=== PATIENT | male | born 1975 | race Caucasian/White ===

== ENCOUNTER 2017-11-17 12:24 | Emergency (ER) | payer OTHER, SELFPAY ==
[2017-11-17 12:25] VITALS: BP 122/78; PULSE 85; RESP 26; TEMP 36.7; O2SAT 100; BMI 26.9
[2017-11-17] MEDS: LORazepam 2 MG/ML Syringe 1 MG IM (13:10)
[2017-11-17] MEDS: Ziprasidone IM 20 MG/ML VIAL IM (13:10)
--- NOTE | 2017-11-17 14:45 | ED.VISSUMM ---
- ER Visit Summary Date of Service: 11/17/17 Chief Complaint: Anxiety History of Present Illness: The patient is a 42 M with anxiety for the past 2-3 days, he is anxious about his divorce, apparently has a job interview in a few days and is very anxious about this. In fact he did not take his Risperdal over the past 2 days apparently also because of stress. He has a history of schizoaffective disorder and anxiety. Physical Examination: Patient appears anxious, his heart is regular lungs are clear abdomen soft and nontender and normal exam otherwise. He has no hallucinations, he is not delusional, he is not psychotic. He is not manic. ] Emergency Department Course and Treatment: Patient was treated with Geodon and Ativan he is now sleeping comfortably feels much better he is encouraged to take his home medications and he will. He is not suicidal and he will be discharged in stable condition. Impression: [Anxiety] This note was generated with [employer] dictation software. It may contain incorrect words, spelling, and punctuation that were not noted in review of the chart prior to signing ED Disposition - Plan for ED Patient: Disposition: Home or Assisted Living Chief Complaint: Anxiety Instructions: ED Stress React Referrals: Care Physician,No Primary [Primary Care Provider] - 2 Days
[2017-11-17 14:55] VITALS: BP 110/57; PULSE 70; RESP 12; O2SAT 99
== END 2017-11-17 14:57 | disposition home or self-care (01) ==
PROVIDERS: Emergency Provider Emergency Medicine
DX: F41.9 Anxiety disorder, unspecified (principal); F25.9 Schizoaffective disorder, unspecified; F12.90 Cannabis use, unspecified, uncomplicated; Z79.899 Other long term (current) drug therapy; Z72.0 Tobacco use
CPT/HCPCS: 96372; 99285; J3486

== ENCOUNTER 2017-12-05 17:23 | Emergency (ER) | payer OTHER, SELFPAY ==
[2017-12-05 17:24] VITALS: BP 98/60; PULSE 78; RESP 16; TEMP 36.3; O2SAT 97; BMI 26.2
--- NOTE | 2017-12-05 17:38 | ED.VISSUMM ---
- ER Visit Summary Date of Service: 12/05/17 Chief Complaint: Depression History of Present Illness: The patient is a 42 M reportedly called his daughter today to say goodarturoe. He would not answer the phone when she tried to call back so police were called. Please found him in his home. He said there were no weapons in the house. Patient does admit to drinking 6 or 7 beers today and eating edible marijuana gummy bears. He states he took his normal psych medications today. He will not admit to wanting to hurt himself at this time but does admit that he is depressed. He apparently recently had a marriage and and lost a close friend. Patient is followed at the counseling center denies any recent change to his psychiatric medications. Physical Examination: Vital signs include blood pressure 98/60, temperature 97.4, heart rate 78, respiratory rate 16, pulse ox 97% on room air. Patient is lying with his eyes closed. He will only open his eyes to command. He will answer questions appropriately. Head neck examination reveals no sign of trauma. Heart is regular rate and rhythm. Lung sounds are clear. Abdomen is soft nontender. Test Results: EKG is sinus at 74 with no sign of acute ischemia. CBC significant for hemoglobin 12.7. Chemistry studies unremarkable. Tox screen is positive for amphetamines, MDMA, cannabinoids. EtOH is 160. Emergency Department Course and Treatment: Patient was given liter of IV fluids here. He did request nicotine patch. After patient had been observed for several hours he was evaluated by Brittnee from the counseling center. After speaking with her, patient does admit that he does feel suicidal and this scares him because he has only had these thoughts one prior time when he did attempt suicide. He recently lost his marriage, his uncle , and a friend committed suicide 4 days ago. At this time we will attempt to find placement for him for treatment. Treatment Plan: [] Disposition: Plan to transfer Impression: Suicidal ideation This note was generated with [employer] dictation software. It may contain incorrect words, spelling, and punctuation that were not noted in review of the chart prior to signing ED Disposition - Plan for ED Patient: Chief Complaint: Mental Health Referrals: Care Physician,No Primary [Primary Care Provider] -
[2017-12-05] MEDS: 0.9% Normal Saline 1,000 ML 1000 ML IV (17:41)
[2017-12-05 17:55] LABS: Absolute Lymphocyte Count 3.04 X10^3/ul (0.83-4.51); Basophil# 0.03 X10^3/uL; Basophil% 0.5 % (0-1); Eosinophil# 0.14 X10^3/uL; Eosinophils% 2.1 % (0-5); Hematocrit 36.1 % (40-54); Hemoglobin 12.7 g/dl (13.0-16.5); Lymphocyte # 3.04 X10^3/ul (4.0); Lymphocyte % 46.1 % (19-41); Mean Corp Hgb Conc 35.2 g/gl (32-36); Mean Corpuscular Hgb 30.5 pg (27.0-32.0); Mean Corpuscular Volume 86.8 fL (80-94); Mean Platelet Vol. 8.5 fl (6.2-12.0); Monocyte# 0.41 X10^3/uL; Monocyte% 6.2 % (0-10); Neutrophil # 2.96 X10^3/uL (2.7-7.7); Neutrophil % 44.9 % (47-70); Platelet Count 237 K/mm3 (150-450); RBC Distribution Width CV 12.8 % (11.6-14.6); Red Blood Count 4.16 M/mm3 (4.6-6.2); White Blood Count 6.6 K/mm3 (4.4-11.0)
[2017-12-05 17:57] LABS: Anion Gap 8 (5-15); BUN 10 mg/dL (7-18); BUN/Creat Ratio 13.8 RATIO (10-20); Calcium,Total 8.2 mg/dL (8.5-10.1); Chloride 100 mmol/L (98-107); Creatinine, Serum 0.73 mg/dL (0.70-1.30); EST Glomerular Filtration Rate 127 mL/min (>60); Est Glom Filt Rate - Afr Amer 153 mL/min (>60); Estimated Creatinine Clearance 120.17 ml/min; Glucose 94 mg/dL (74-106); Potassium 3.5 mmol/L (3.5-5.1); Sodium Level 135 mmol/L (136-145)
[2017-12-05 17:58] LABS: POSITIVE COUNT NO; POSITIVE DIFFERENTIAL NO; POSITIVE MORPHOLOGY NO
[2017-12-05 18:52] VITALS: BP 90/54; PULSE 74; RESP 15; O2SAT 94
[2017-12-05 19:00] VITALS: BP 98/58; PULSE 77
[2017-12-05 20:00] VITALS: BP 93/59
--- NOTE | 2017-12-05 20:34 | ED.RN ---
PT EXPRESSES FRUSTRATION AT BEING IN THE ED. PT IS DEMANDING THAT HE BE DISCHARGED. VERONICA RN AND SECURITY AT BEDSIDE WITH THE RN. PT IS RAISING HIS VOICE AND CURSING. PT'S FRUSTRATION IS ESCALATING. PT IS REQUESTING A NICOTINE PATCH. PT REFUSING FOOD AND BEVERAGE. DO WHAT YOU GOTTA DO TO GET ME OUT OF HERE, I HAVE SHIT TO DO.
[2017-12-05 21:00] VITALS: BP 95/80; PULSE 69; RESP 16
[2017-12-05 21:01] LABS: Amphetamine Urine VISTA POSITIVE (<1000 ng/mL); Barbiturate Urine VISTA NEGATIVE (< 200 ng/mL); Benzodiazepine Urine VISTA NEGATIVE (< 200 ng/mL); Cocaine Urine VISTA NEGATIVE (< 300 ng/mL); Ecstacy Urine VISTA POSITIVE (< 500 ng/mL); Methadone Urine VISTA NEGATIVE (< 300 ng/mL); PCP Urine VISTA NEGATIVE (< 25 ng/mL); THC Urine VISTA POSITIVE (< 50 ng/mL); Vista UDS pH Range 5
[2017-12-05 22:00] VITALS: BP 109/63; PULSE 83
[2017-12-06] VITALS (13 sets, daily range): BP systolic 89–122; BP diastolic 51–107; PULSE 62–81; RESP 14–19; O2SAT 96–100
[2017-12-06] MEDS: LORazepam 1 MG Tablet PO (04:40)
[2017-12-06] MEDS: RisperiDONE 2 MG Tablet PO ×2 (04:58→04:59)
[2017-12-06] MEDS: Benztropine 2 MG Tablet 0.5 MG PO (04:58)
[2017-12-06] MEDS: buPROPion (XL) 150 MG TABLET.XL PO (04:59)
[2017-12-06] MEDS: Escitalopram Oxalate 20 MG Tablet PO (05:00)
--- NOTE | 2017-12-06 09:27 | ED.RN ---
CALLED [facility], WILL CALL BACK WITH INSURANCE VERIFICATION AND IF PT IS ADMITTED.
--- NOTE | 2017-12-06 11:26 | NURSING ---
CALLED [facility] FOR AN UPDATE. HENNA IS WITH A PATIENT
== END 2017-12-06 14:33 ==
PROVIDERS: Emergency Provider Emergency Medicine
DX: F32.9 Major depressive disorder, single episode, unspecified (principal); R45.851 Suicidal ideations; F12.90 Cannabis use, unspecified, uncomplicated; Z91.5 Personal history of self-harm; Z79.899 Other long term (current) drug therapy; Z72.0 Tobacco use
CPT/HCPCS: 80048; 80307; 80320; 85025; 93005; 99285; J7030; A4216; G0480

== ENCOUNTER 2018-02-11 13:50 | Emergency (ER) | payer OTHER, SELFPAY ==
[2018-02-11 13:52] VITALS: BP 132/89; PULSE 87; RESP 16; TEMP 37; O2SAT 97; BMI 25.2
[2018-02-11] MEDS: LORazepam 1 MG Tablet PO (14:21)
--- NOTE | 2018-02-11 14:51 | ED.RN ---
Awaiting neighbor to ED to provide pt with a ride home.
--- NOTE | 2018-02-11 15:10 | ED.VISSUMM ---
- ER Visit Summary Date of Service: 02/11/18 Chief Complaint: Methamphetamine abuse History of Present Illness: The patient is a 42 M who goes to the counseling center. Is not see primary care physician. He reports that he first tried methamphetamine approximately 2 weeks ago and snorted it. This morning he snorted it again. The police came to his house due to an altercation that he states has nothing to do with this. They were concerned that he was intoxicated and brought him to the emergency department for evaluation. Patient denies any suicidal homicidal ideation. No auditory or visual hallucinations. Review of systems: General: No fever, chills, cold sweats. Cardiovascular: No chest pain, palpitations. Respiratory: No cough, shortness of breath, dyspnea on exertion. Gastrointestinal: No abdominal pain, nausea, vomiting, diarrhea, melena, or hematochezia. Genitourinary: No dysuria, frequency, hematuria. Skin: No rash. Neuro: No headache, numbness, weakness. Physical Examination: Vitals: Stable. Afebrile. General: Well-nourished and well-developed. Head: Normocephalic atraumatic. Neck: Supple, no lymphadenopathy. No JVD. Nontender. Cardiovascular: Regular rate and rhythm. No murmurs. Respiratory: No respiratory distress. Clear to auscultation bilaterally. Abdominal: Soft, nontender, nondistended, normal bowel sounds. No guarding, rebound, or peritoneal signs. Back: Nontender. Extremities: Nontender, no edema. Skin: Normal color, no rash. Neurologic: Alert and oriented ?3. Cranial nerves II through XII are intact. Normal strength and sensation. Psych: Normal affect. Emergency Department Course and Treatment: Patient was given a milligram of Ativan p.o. He is resting comfortably. Treatment Plan: Patient be discharged instructions to follow-up with 180 as soon as possible. Return to the emergency department for any worsening symptoms. Disposition: To home in improved and stable condition. Impression: 1. Methamphetamine abuse. This note was generated with [employer] software. It may contain incorrect words, spelling, and punctuation that were not noted in review of the chart prior to signing ED Disposition - Plan for ED Patient: Chief Complaint: Substance Abuse Instructions: ED Drug Abuse General Referrals: EIGHTY,ONE [STAFF PHYSICIAN] - As soon as possible
[2018-02-11 15:19] VITALS: BP 136/96; PULSE 85; RESP 16; O2SAT 95
--- NOTE | 2018-02-11 16:34 | ED.RN ---
PT DC RIDE HOME VIA CAB. VOUCHER SIGNED PER [employer].
== END 2018-02-11 16:36 | disposition home or self-care (01) ==
PROVIDERS: Emergency Provider Emergency Medicine
DX: F15.10 Other stimulant abuse, uncomplicated (principal); F32.9 Major depressive disorder, single episode, unspecified; F41.9 Anxiety disorder, unspecified; F43.10 Post-traumatic stress disorder, unspecified; Z79.899 Other long term (current) drug therapy; Z72.0 Tobacco use
CPT/HCPCS: 99282

== ENCOUNTER 2018-02-16 13:49 | Emergency (ER) | payer OTHER, SELFPAY ==
[2018-02-16 13:51] VITALS: BP 113/70; PULSE 108; RESP 18; TEMP 36.6; O2SAT 97; BMI 25.1
--- NOTE | 2018-02-16 14:49 | ED.VISSUMM ---
- ER Visit Summary Date of Service: 02/16/18 Chief Complaint: Anxiety History of Present Illness: The patient is a 42 M who presents with anxiety that began today. Patient states he has a history of anxiety and panic attacks. Patient states this feels similar to prior anxiety attacks. Patient states he has not done any meth for the past 2 days. Patient states he wants to be clean. Patient states he became anxious while he was registering for rehab at the [address] [place] [address]. Patient denies any suicidal or homicidal ideations. Patient states he takes multiple medications for anxiety and panic attacks. Physical Examination: Vital signs are stable. Patient is afebrile. Patient is in no acute distress. Oral mucosa is pink and moist. Neck is supple. Trachea is midline. There is no JVD noted. Heart was regular rate and rhythm. Lungs are clear and equal bilateral. There is good respiratory effort noted. Abdomen is soft and nontender. Cranial nerves II through XII are intact. There are no focal motor or sensory deficits noted. Patient did have an anxious mood and affect. Patient denies any suicidal or homicidal ideations. Emergency Department Course and Treatment: Patient was given Ativan 1 mg p.o. here. Patient felt better. Patient was instructed to follow-up with his primary care physician for further evaluation. Patient understood and was agreeable with the plan. All questions were answered. Disposition: Discharge home Impression: Acute anxiety This note was generated with [employer] dictation software. It may contain incorrect words, spelling, and punctuation that were not noted in review of the chart prior to signing ED Disposition - Plan for ED Patient: Disposition: Home or Assisted Living Chief Complaint: Anxiety Diagnosis: Acute anxiety Instructions: ED Panic Attack Referrals: Care Physician,No Primary [Primary Care Provider] -
--- NOTE | 2018-02-16 14:54 | ED.DCSUM_ITS ---
- ER Visit Summary Date of Service: 02/16/18 Chief Complaint: Anxiety History of Present Illness: The patient is a 42 M who presents with anxiety that began today. Patient states he has a history of anxiety and panic attacks. Patient states this feels similar to prior anxiety attacks. Patient states he h as not done any meth for the past 2 days. Patient states he wants to be clean. Patient states he became anxious while he was registering for rehab at the [facility] facility. Patient denies any suicidal or homicidal ideations. Patient states he takes multiple medications for anxiety and panic attacks. Physical Examination: Vital signs are stable. Patient is afebrile. Patient is in no acute distress. Oral mucosa is pink and moist. Neck is supple. Trachea is midline. There is no JVD noted. Heart was regular rate and rhythm. Lungs are clear and equal bilateral. There is good respiratory effort noted. Abdomen is soft and nontender. Cranial nerves II through XII are intact. There are no focal motor or sensory deficits noted. Patient did have an anxious mood and a ffect. Patient denies any suicidal or homicidal ideations. Emergency Department Course and Treatment: Patient was given Ativan 1 mg p.o. here. Patient felt better. Patient was instructed to follow-up with his primary care physician for further evaluation. Patient understood and was agreeable with the plan. All questions were answered. Disposition: Discharge home Impression: Acute anxiety This note was generated with [employer] dictation software. It may contain incorrect words, spelling, and punctuation that were not noted in review of the chart prior to signing ED Disposition - Plan for ED Patient: Disposition: Home or Assisted Living Chief Complaint: Anxiety Diagnosis: Acute anxiety Instructions: ED Panic Attack Referrals: Care Physician,No Primary [Primary Care Provider] -
[2018-02-16] MEDS: LORazepam 1 MG Tablet PO (15:10)
[2018-02-16 15:11] VITALS: BP 118/71; PULSE 109; RESP 20; O2SAT 98
== END 2018-02-16 15:21 | disposition home or self-care (01) ==
LOC: ED 15:16
PROVIDERS: Emergency Provider Emergency Medicine
DX: F41.9 Anxiety disorder, unspecified (principal); Z72.0 Tobacco use
CPT/HCPCS: 99283

== ENCOUNTER 2022-01-09 21:37 | Inpatient (IN) | payer OTHER, MEDICARE, SELFPAY ==
[2022-01-09 21:36] VITALS: BP 110/75; PULSE 68; RESP 16; TEMP 36.7; O2SAT 98
[2022-01-09 21:48] VITALS: BMI 31.8
[2022-01-09 22:10] VITALS: O2SAT 98
--- NOTE | 2022-01-09 22:16 | PCM.HP.STD ---
HPI - General General Date of Admission: 01/09/22 Date of Service: 01/09/22 Chief Complaint: abdominal pain HPI Narrative LORENZA HELTON, is a 46 M with a significant With a significant history of former smoker; anxiety disorder; Depression; and schizophrenia who was [facility] in hospital because of abdominal pain. Patient report that he has been in [facility] from May 2021 and he is due to be released on the same week of presentation. He reports progressively worsening abdominal pain that started about a week and a half prior to presentation. His pain is greatest at his left lower quadrant and it radiates to his entire abdomen. Four days before presentation his pain increased to its maximum and it has remained at the level. He describes his pain as a constant aching. The pain worsens with bending over and improves with eating and drinking cold water. Initially he was anorexic but now he has his appetite back. He reports greenish stools. Last time his bowels move was on the same day of presentation. Reports dark yellow urine. He reports jaundice. [facility] Medical History Anxiety and depression ETOH abuse Schizo affective schizophrenia Sleep apnea Smoker Home Medications benztropine 2 mg tablet 0.5 mg PO BID mood 02/19/15 [History Last Taken 01/09/22 08:00] bupropion HCl 150 mg tablet,12 hr sustained-release 150 mg PO DAILY mood 02/19/15 [History Last Taken 01/09/22 08:00] escitalopram oxalate 20 mg tablet 20 mg PO DAILY mood 02/19/15 [History Last Taken 01/09/22 08:00] risperidone 2 mg tablet 2 mg PO BID anxiety 11/17/17 [History Last Taken 01/09/22 08:00] hydroxyzine HCl 50 mg tablet 50 mg PO TID PRN Anxiety 02/11/18 [History Last Taken 01/09/22 08:00] Lamictal 100 mg QHS 01/09/22 [History Last Taken 01/08/22 22:00] ibuprofen 400 mg tablet 600 mg PO Q8H PRN Pain 01/09/22 [History Last Taken 01/09/22 08:00] melatonin 10 mg QHS PRN Sleep 01/09/22 [History Last Taken 01/03/22] Allergy/AdvReac Type Severity Reaction Status Date / Time No Known Allergies Allergy Verified 01/09/22 21:57 Family History Other Colon cancer unable to obtain (Reports history of sleep apnea surgery that he is unable to accurately describe.) Social History Smoking Status: Former smoker ROS ROS Narrative Pertinent positives and pertinent negatives as noted in HPI. All other systems were reviewed and are negative Vital Signs Vital Signs Vital Signs: 01/09/22 21:36 Temperature 98.1 F Temperature Source Oral Pulse Rate 68 Respiratory Rate 16 Blood Pressure 110/75 Blood Pressure Mean 86 Blood Pressure Source Monitor Blood Pressure Position Semi-Fowlers Blood Pressure Location Left Arm Pulse Ox 98 Oxygen Delivery Method Room Air Weight Weight: 89.6 kg Body Mass Index (BMI) 31.8 Physical Exam Narrative Physical exam: General: Well-nourished, well-developed. Head: Normocephalic, atraumatic, no tenderness Eyes: Mild scleral icterus. Vision is grossly intact. EOMI ENT, no trauma, moist mucous membranes, no rhinorrhea Neck: Nontender, full range of motion, no spinal tenderness, deformities, step-off CVS: Regular rate and rhythm. S1-S2 present. No murmur, gallop or rub. Respiratory : clear to auscultation bilaterally, chest wall nontender, no wheezing Abdomen: Soft, tender Left lower quadrant, nondistended, normal bowel sounds, no masses : Deferred Back: Nontender, no CVA tenderness, no midline spinal tenderness, deformities, step-offs Extremities: Nontender full range of motion, no trauma Skin: . Mild jaundiced. no trauma, abrasions Neuro: Alert, oriented, cranial nerves II through XII grossly intact. Psychiatry: Normal mood. Normal affect. Not depressed. Not anxious. Assessment & Plan Assessment/Plan (1) Cholecystitis: (2) Elevated liver enzymes: (3) Hyperbilirubinemia: PLAN: Plan Cholecystitis/elevated liver enzymes/hyperbilirubinemia. At outside hospital ED bili was 5.4. AST was 1141; ALT was 2320; alkaline phosphatase was 180. Ultrasound showed thickening of gallbladder with no stones. Received Zosyn at outside hospital. Zosyn ordered. MRCP ordered. Consult to gastroenterology. IV fluids ordered. Acute hepatitis panel ordered. Trend CBC and BMP. NPO after midnight. Schizoaffective disorder Stable Home meds continued. DVT Prophylaxis: SCD ordered. Charges/Coding Visit Charges Inpatient E&M: 49448 Init Hosp L3
[2022-01-09] MEDS: Morphine 2 MG/ML Syringe IV (23:02)
[2022-01-09] MEDS: 0.9% Normal Saline 1,000 ML 75 ML IV (23:02)
[2022-01-09] MEDS: hydrOXYzine PAM 25 MG Capsule 50 MG PO (23:02)
[2022-01-09] MEDS: RisperiDONE 2 MG Tablet PO (23:03)
[2022-01-09] MEDS: Benztropine Mesylate 0.5 MG TABLET PO (23:04)
[2022-01-10] VITALS (8 sets, daily range): BP systolic 79–108; BP diastolic 55–72; PULSE 59–85; RESP 14–16; TEMP 36.4–37.2; O2SAT 96–99
[2022-01-10] MEDS: Ibuprofen 400 MG Tablet PO ×2 (01:48→20:46)
--- NOTE | 2022-01-10 05:55 | MRI_ITS ---
INDICATION: severe hepatitis EXAMINATION: CT ABDOMEN AND PELVIS WITH CONTRAST - CT Abdomen And Pelvis W/ Contrast Injection TECHNIQUE: Helically acquired images were obtained of the abdomen and pelvis following IV contrast. A radiation dose optimization technique was used for this scan. IV Contrast dosage and agent: 100 mL of ISOVUE-300 Oral contrast: None. COMPARISON: None. FINDINGS: LOWER CHEST: Lung bases are clear. No cardiomegaly or pericardial effusion.Small type I hiatus hernia seen. LIVER: Homogeneous. No focal mass. Intrahepatic biliary dilatation is seen. GALLBLADDER AND BILIARY TREE: Marked thickening of the wall of the gallbladder is visualized, enhancement of the wall of the gallbladder is seen. No evidence of gallstones, mild intrahepatic biliary dilatation is visualized. Stranding visualized surrounding the common bile duct but no significant common bile duct dilatation, no evidence of a common bile duct stones. PANCREAS: No focal cystic or solid mass. SPLEEN: Normal size without focal cystic or solid mass. ADRENAL GLANDS: No nodules. KIDNEYS AND URETERS: Normal renal size and position. No hydronephrosis. PERITONEUM: Small amount of free fluid is visualized in the left pelvis. BOWEL: No evidence of acute appendicitis. No stomach or bowel distension. No focal inflammatory change. LYMPH NODES: Lymph nodes are visualized in the hepatic hilum. Scattered peritoneal lymph nodes are seen. VESSELS: Aorta is non-dilated. URINARY BLADDER: Prominent urinary bladder is seen. REPRODUCTIVE ORGANS: No pelvic masses. ABDOMINAL WALL: No discrete abdominal or pelvic wall hernia. BONES: No lytic or blastic abnormality. Degenerative bone changes are seen. Decreased intervertebral disc height visualized most prominent at L4-L5. MRI/MRCP Abdomen without Contrast IMPRESSION: Marked thickening of the wall of the gallbladder with stranding in the pericholecystic fat planes visualized. Would recommend clinical correlation. Small amount of free fluid is visualized in the pelvis. Scattered peritoneal lymph nodes visualized most prominent in the hepatic hilum and surrounding the gallbladder. Mildly distended urinary bladder is seen. Degenerative bone changes are seen. Electronically Signed: Jose Biggs MD at 8:20 EDT ,
[2022-01-10 06:37] LABS: Absolute Lymphocyte Count 1.41 X10^3/uL (0.83-4.51); Absolute Neutrophil Count 0.8 X10^3/uL (2.0-7.7); Basophil# 0.02 X10^3/uL; Basophil% 0.7 % (0-1); Eosinophil# 0.04 X10^3/uL; Eosinophils% 1.5 % (0-5); Hematocrit 32.8 % (40-54); Hemoglobin 10.8 g/dL (13.0-16.5); Lymphocyte # 1.41 X10^3/ul (0.83-4.51); Lymphocyte % 52.6 % (19-41); Mean Corp Hgb Conc 32.9 g/dL (32-36); Mean Corpuscular Hgb 28.6 pg (27.0-32.0); Mean Platelet Vol. 9.4 fl (6.2-12.0); Monocyte# 0.43 X10^3/uL; NRBC Flagged by Analyzer 0 % (0-5); Neutrophil # 0.77 X10^3/uL (2.7-7.7); Neutrophil % 28.8 % (47-70); POSITIVE DIFFERENTIAL YES; POSITIVE MORPHOLOGY YES; Platelet Count 112 K/mm3 (150-450); RBC Distribution Width CV 13.8 % (11.6-14.6); RBC Distribution Width SD 43.6 fl (35.1-43.9); Red Blood Count 3.77 M/mm3 (4.6-6.2); White Blood Count 2.7 K/mm3 (4.4-11.0)
[2022-01-10 06:44] LABS: Differential Indicated SCAN CRITERIA MET
--- NOTE | 2022-01-10 07:16 | CT_ITS ---
INDICATION: severe hepatitis EXAMINATION: CT ABDOMEN AND PELVIS WITH CONTRAST - CT Abdomen And Pelvis W/ Contrast Injection TECHNIQUE: Helically acquired images were obtained of the abdomen and pelvis following IV contrast. A radiation dose optimization technique was used for this scan. IV Contrast dosage and agent: 100 mL of ISOVUE-300 Oral contrast: None. COMPARISON: None. FINDINGS: LOWER CHEST: Lung bases are clear. No cardiomegaly or pericardial effusion.Small type I hiatus hernia seen. LIVER: Homogeneous. No focal mass. Intrahepatic biliary dilatation is seen. GALLBLADDER AND BILIARY TREE: Marked thickening of the wall of the gallbladder is visualized, enhancement of the wall of the gallbladder is seen. No evidence of gallstones, mild intrahepatic biliary dilatation is visualized. Stranding visualized surrounding the common bile duct but no significant common bile duct dilatation, no evidence of a common bile duct stones. PANCREAS: No focal cystic or solid mass. SPLEEN: Normal size without focal cystic or solid mass. ADRENAL GLANDS: No nodules. KIDNEYS AND URETERS: Normal renal size and position. No hydronephrosis. PERITONEUM: Small amount of free fluid is visualized in the left pelvis. BOWEL: No evidence of acute appendicitis. No stomach or bowel distension. No focal inflammatory change. LYMPH NODES: Lymph nodes are visualized in the hepatic hilum. Scattered peritoneal lymph nodes are seen. VESSELS: Aorta is non-dilated. URINARY BLADDER: Prominent urinary bladder is seen. REPRODUCTIVE ORGANS: No pelvic masses. ABDOMINAL WALL: No discrete abdominal or pelvic wall hernia. BONES: No lytic or blastic abnormality. Degenerative bone changes are seen. Decreased intervertebral disc height visualized most prominent at L4-L5. CT/Abdomen/Pelvis W IV Cont ONLY IMPRESSION: Marked thickening of the wall of the gallbladder with stranding in the pericholecystic fat planes visualized. Would recommend clinical correlation. Small amount of free fluid is visualized in the pelvis. Scattered peritoneal lymph nodes visualized most prominent in the hepatic hilum and surrounding the gallbladder. Mildly distended urinary bladder is seen. Degenerative bone changes are seen. Electronically Signed: Jose Biggs MD at 8:20 EDT ,
[2022-01-10 07:17] LABS: AST(SGOT) 1028 U/L (15-37); Alanine Aminotransfer ALT/SGPT 1962 U/L (16-61); Albumin, Serum 2.8 g/dL (3.2-5.0); Alkaline Phosphatase 160 U/L (45-117); Anion Gap 6 (5-15); BUN 10 mg/dL (7-18); BUN/Creat Ratio 11.9 RATIO (10-20); Calcium,Total 8.4 mg/dL (8.5-10.1); Chloride 106 mmol/L (98-107); Creatinine, Serum 0.84 mg/dL (0.70-1.30); EST Glomerular Filtration Rate 105 mL/min (>60); Est Glom Filt Rate - Afr Amer 127 mL/min (>60); Estimated Creatinine Clearance 100.21 ml/min; Globulin 2.9 g/dL (2.2-4.2); Glucose 91 mg/dL (74-106); Potassium 3.8 mmol/L (3.5-5.1); Protein, Total 5.7 g/dL (6.4-8.2); Sodium Level 141 mmol/L (136-145)
--- NOTE | 2022-01-10 07:37 | CON.PCM_ITS ---
Assessment & Plan Assessment/Plan (1) Acute hepatitis: PLAN: The differential diagnosis for his acute hepatitis causing a significant hepatocellular injury with his AST and ALT about 5000 include acute viral hepatitis, acute Tramaine's disease, autoimmune hepatitis, ischemic hepatitis or acetaminophen overdose,( rhabdomyolysis would also cause AST and ALT into the thousands). I will get a CT scan abdomen pelvis. At this time he appears very comfortable without much abdominal pain so I am suspecting that this is an acute hepatitis without any reason to think that he will decompensate resulting in need for liver transplant evaluation. I will also order an HIV, CPK, LDH, PT, PTT, INR, smooth muscle antibody, mitochondrial antibody, ferritin. I do not think he needs Mucomyst at this time as his LFTs are improving. However if his INR is elevated recommend vitamin K prior to any other administration of medicines (2) Cholecystitis: PLAN: . I do not think he has cholecystitis I think this is more local liver inflammation causing inflammation to surrounding gallbladder. I think as his acute of otitis gets better than the inflammation around his gallbladder will get better. HPI Consult Data Date of Consult: 01/10/22 HPI Narrative Reason for Consultation: hepatitis HPI Narrative: LORENZA HELTON, is a 46 M who presents from outside hospital with abdominal pain. He was discovered to have elevated liver enzymes and jaundice. Patient has a history of polysubstance abuse and has been admitted for drug overdose. He has no previous history of chronic viral hepatitis A or B. He has no past medical history of HIV. Patient report that he has been in? long-term from May 2021 and he is due to be released on the same week of presentation. He reports progressively worsening abdominal pain that started about a week and a half prior to presentation.? His pain is greatest at his left lower quadrant and it radiates to his entire abdomen.? Four days before presentation his pain increased to its maximum and it has remained at the level.? Biochemical work-up in the hospital showed AST and ALT at 2500/1300. Bilirubin was 5.2 with an alkaline phosphatase of 300. CBC had shown a white blood cell count of 7.5, platelets 250, hemoglobin 14.5. He had an ultrasound which that showed some mild hepatomegaly and a thickened gallbladder, mild pericholecystic fluid without stones in the gallbladder. Common bile duct diameter was noted to be 4 mm. He has no history of alcoholic hepatitis or alcoholic pancreatitis. He has no family members with acute or chronic liver disease. All other 16 review of systems are negative except as pertinent positive mentioned HPI. PFSH Medical History Anxiety and depression ETOH abuse Schizo affective schizophrenia Sleep apnea Smoker Home Medications benztropine 2 mg tablet 0.5 mg PO BID mood 02/19/15 [History Last Taken 01/09/22 08:00] bupropion HCl 150 mg tablet,12 hr sustained-release 150 mg PO DAILY mood 02/19/15 [History Last Taken 01/09/22 08:00] escitalopram oxalate 20 mg tablet 20 mg PO DAILY mood 02/19/15 [History Last Taken 01/09/22 08:00] risperidone 2 mg tablet 2 mg PO BID anxiety 11/17/17 [History Last Taken 01/09/22 08:00] hydroxyzine HCl 50 mg tablet 50 mg PO TID PRN Anxiety 02/11/18 [History Last Taken 01/09/22 08:00] Lamictal 100 mg QHS 01/09/22 [History Last Taken 01/08/22 22:00] ibuprofen 400 mg tablet 600 mg PO Q8H PRN Pain 01/09/22 [History Last Taken 01/09/22 08:00] melatonin 10 mg QHS PRN Sleep 01/09/22 [History Last Taken 01/03/22] Allergy/AdvReac Type Severity Reaction Status Date / Time No Known Allergies Allergy Verified 01/09/22 21:57 Family History Other Colon cancer Surgical History unable to obtain Social History Smoking Status: Former smoker ROS ROS Narrative Pertinent positives and pertinent negatives as noted in HPI. All other systems were reviewed and are negative Physical Exam Narrative Physical exam: General: Well-nourished, well-developed. Head: Normocephalic, atraumatic, no tenderness Eyes: Mild scleral icterus. Vision is grossly intact. EOMI ENT, no trauma, moist mucous membranes, no rhinorrhea Neck: Nontender, full range of motion, no spinal tenderness, deformities, step- off CVS: Regular rate and rhythm. S1-S2 present. No murmur, gallop or rub. Respiratory : clear to auscultation bilaterally, chest wall nontender, no wheezing Abdomen: Soft, tender Left lower quadrant, nondistended, normal bowel sounds, no masses : Deferred Back: Nontender, no CVA tenderness, no midline spinal tenderness, deformities, step-offs Extremities: Nontender full range of motion, no trauma Skin: . Mild jaundiced. no trauma, abrasions Neuro: Alert, oriented, cranial nerves II through XII grossly intact. Psychiatry: Normal mood. Normal affect. Not depressed. Not anxious. Lab / Micro Data Result Diagrams: 01/10/22 06:25 01/10/22 06:25 Labs: Laboratory Results - last 24 hr 01/10/22 06:25: WBC 2.7 L, RBC 3.77 L, Hgb 10.8 L, Hct 32.8 L, MCV 87.0, MCH 28.6, MCHC 32.9, RDW Std Deviation 43.6, RDW Coeff of Tesfaye 13.8, Plt Count 112 L, MPV 9.4, Immature Gran % (Auto) 0.400, Neut % (Auto) 28.8 L, Lymph % (Auto) 52.6 H, Phelps % (Auto) 16.0 H, Eos % (Auto) 1.5, Baso % (Auto) 0.7, Absolute Neuts (auto) 0.8 L, Absolute Lymphs (auto) 1.41, Nucleated RBC % 0 01/10/22 06:25: Sodium 141, Potassium 3.8, Chloride 106, Carbon Dioxide 29.0, Anion Gap 6, BUN 10, Creatinine 0.84, Estim Creat Clear Calc 100.21, Est GFR (MDRD) Af Amer 127, Est GFR (MDRD) Non-Af 105, BUN/Creatinine Ratio 11.9, Glucose 91, Calcium 8.4 L, Total Bilirubin 4.60 H, AST 1028 H, ALT 1962 H, A lkaline Phosphatase 160 H, Total Protein 5.7 L, Albumin 2.8 L, Globulin 2.9, Albumin/Globulin Ratio 1.0 Charges/Coding Visit Charges Inpatient E&M: 41511 Init Hosp L3
[2022-01-10] MEDS: Benztropine Mesylate 0.5 MG TABLET PO ×2 (08:26→20:46)
[2022-01-10] MEDS: buPROPion (XL) 150 MG TABLET.XL PO (08:26)
[2022-01-10] MEDS: Escitalopram Oxalate 20 MG Tablet PO (08:26)
[2022-01-10] MEDS: RisperiDONE 2 MG Tablet PO ×2 (08:27→20:46)
[2022-01-10 08:44] LABS: International Normalized Ratio 1.1; Prothrombin Time (Protime)PT. 13.6 SECONDS (11.7-14.9)
[2022-01-10 08:45] LABS: Partial Thromboplast Time 36.3 Seconds (24.1-36.2)
[2022-01-10 09:31] LABS: HIV - WCH Non-Reactive (Nonreactive)
[2022-01-10 09:34] LABS: Ferritin 4512 ng/mL (26-388); LDH 346 U/L (87-241)
--- NOTE | 2022-01-10 09:51 | CASEMGMT ---
Addendum entered by Jasmyne Cabezas 01/10/22 14:18: Notified registration Myla that pt believes he has medicare instead of the aultcare but that he does not have his wallet with him to give a copy of the card. Original Note: NIC KONG Assessment: Face to Face with pt for initial transition planning/care coordination assessment. NIC KONG introduced self and role at [facility], pt voices understanding and consents to assessment. Pt is A/O x4 and answers all questions appropriately at this time. Pt lying in bed in no distress. Care providers, pharmacy, and demographics verified/updated. Pt states he has no current address as he has been at the long-term. He is unsure of an address at co. Updated SW to pt situation. Admitting Dx: abd pain PCP:Pt denies. Provided pt with local healthcare directory list. Specialists:Pt denies. Preferred Pharmacy: [facility] Insurance: [employer] Prescription Benefit: no, pt states he pays for them out of pocket with [employer]. LW/HPOA: Pt states he does not have a LW but has a DPOA and his DPOA is his cousin Bev Allen. He is aware this is not on file at [facility] and he may bring in or have brought in at any time. LNOK: Bev Allen, cousin Living Arrangements: Pt lives currently at the [facility]. Pt reports he is I in ADL's and denies concerns. Pt states he should get out this week yet but does not have a residence. Transportation: Pt has a drivers license and states he can drive but has not due to being in long-term. DME/HHC/SNF: Pt denies having any DME, previous HHC or SNF stays. Pt states no needs at co. Pt states he will be going back to the long-term after this hospitalization, states he is on furlough. Pt states no further concerns/needs. CM to follow. Advised pt to ask CM if any further question/concerns/needs arise, voices understanding. Pt Goal: Back to long-term Plan: Back to long-term
--- NOTE | 2022-01-10 10:20 | PCM.PN.HOSP ---
Subjective Subjective Patient is a 46-year-old gentleman who presented to [facility] with abdominal pain. Found to have abnormal LFTs and CT findings suspicious for acute cholecystitis transferred to [facility] Objective Data Objective Data Vital Signs: Vital Signs Temp Pulse Resp BP Pulse Ox O2 Del Method 97.5 F L 85 16 107/72 98 Room Air 01/10/22 09:52 01/10/22 09:52 01/10/22 09:52 01/10/22 09:52 01/10/22 09:52 01/10/22 09:52 Oxygen Delivery Method Room Air Weight: 89.6 kg Body Mass Index (BMI) 31.8 Intake & Output: Intake and Output for Last 24 Hours 01/08/22 01/09/22 01/10/22 23:59 23:59 23:59 Intake Total 400 / 400 1305 / 1305 Balance 400 / 400 1305 / 1305 Lab / Micro Data Result Diagrams: 01/10/22 06:25 01/10/22 06:25 Labs: Laboratory Results - last 24 hr 01/10/22 06:25: WBC 2.7 L, RBC 3.77 L, Hgb 10.8 L, Hct 32.8 L, MCV 87.0, MCH 28.6, MCHC 32.9, RDW Std Deviation 43.6, RDW Coeff of Tesfaye 13.8, Plt Count 112 L, MPV 9.4, Immature Gran % (Auto) 0.400, Neut % (Auto) 28.8 L, Lymph % (Auto) 52.6 H, Defiance % (Auto) 16.0 H, Eos % (Auto) 1.5, Baso % (Auto) 0.7, Absolute Neuts (auto) 0.8 L, Absolute Lymphs (auto) 1.41, Nucleated RBC % 0 01/10/22 06:25: Sodium 141, Potassium 3.8, Chloride 106, Carbon Dioxide 29.0, Anion Gap 6, BUN 10, Creatinine 0.84, Estim Creat Clear Calc 100.21, Est GFR (MDRD) Af Amer 127, Est GFR (MDRD) Non-Af 105, BUN/Creatinine Ratio 11.9, Glucose 91, Calcium 8.4 L, Total Bilirubin 4.60 H, AST 1028 H, ALT 1962 H, Alkaline Phosphatase 160 H, Total Protein 5.7 L, Albumin 2.8 L, Globulin 2.9, Albumin/Globulin Ratio 1.0 01/10/22 08:15: PT 13.6, INR 1.1, APTT 36.3 H 01/10/22 08:15: Ferritin 4512 H, Lactate Dehydrogenase 346 H 01/10/22 08:15: HIV 1&2 Antibody Non-Reactive Radiography Diagnostic Testing: Radiology Impression Abdomen/Pelvis CT 01/10/22 07:16 IMPRESSION: Marked thickening of the wall of the gallbladder with stranding in the pericholecystic fat planes visualized. Would recommend clinical correlation. Small amount of free fluid is visualized in the pelvis. Scattered peritoneal lymph nodes visualized most prominent in the hepatic hilum and surrounding the gallbladder. Mildly distended urinary bladder is seen. Degenerative bone changes are seen. Electronically Signed: Jose Biggs MD at 8:20 EDT Reading Location ID and State: [facility] / [place] Tel , Service support , Physical Exam Narrative GENERAL: cooperative HEENT: Atraumatic; EYES; icteric, NECK; supple, normal thyroid, RESPIRATORY: Diminished to auscultation CARDIOVASCULAR: Regular S1 S2, GI: soft, normoactive bowel sounds, : No Renal angle tenderness; EXTREMITIES: No edema, no clubbing, MUSCULOSKELETAL: no muscle wasting NEURO: Awake; no lateralizing signs. SKIN: No Rash PSYCH; Flat affect Assessment & Plan Assessment/Plan (1) Cholecystitis: (2) Elevated liver enzymes: (3) Hyperbilirubinemia: PLAN: Plan Patient is a 46-year-old gentleman who presented to [facility] with abdominal pain. Found to have abnormal LFTs and CT findings suspicious for acute cholecystitis transferred to [facility] 1. Acute hepatitis ? Patient has been admitted to regular nursing floor with consultation placed to GI. Patient was seen in consultation by Dr. Easton his notes and recommendations and diagnostic order order placed by him reviewed 2. Inflamed gallbladder ? Thought to be secondary to a reaction to local liver inflammation 3. Schizoaffective disorder ? Did continue patient home meds 4. Tobacco dependence - Counseled on cessation, offered nicotine patch for tobacco cravings 5. DVT prophylaxis ? Low risk did encourage ambulation Charges/Coding Visit Charges Inpatient E&M: 18840 Subs Hosp L2
[2022-01-10 11:27] LABS: CPK Total, Creatine Kinase 53 U/L (39-308)
--- NOTE | 2022-01-10 12:07 | CASEMGMT ---
Social Work Per RNCM note pt states he does not have a LW but has a DPOA and his DPOA is cousin, Bev Allen. He is aware this is not on file at [facility] and he may bring in or have brought in at any time. Ana Villatoro, SARAH
--- NOTE | 2022-01-10 14:08 | CASEMGMT ---
Addendum entered by Ana Villatoro 01/10/22 15:23: Upon discussing housing resources SW offered education to pt that past legal concerns could have an impact on the resources for housing that may be available to pt. SW explained that past illegal drug or violent crimes could prevent some housing agencies and facilities from providing assistance to pt. Pt voiced understanding. Pt disclosed his current pending charge is rape and sexual assault. Pt stated The charges will be dropped because I plead not guilty by reason of insanity. They did not find any evidence inside her or on her. My cousin moved my stuff away from where she lived. I watched a video of myself at the court and I know I wasn't on my medication. Pt also stated he has no family support other than cousin Bev. SARAH Phillips Original Note: Social Work SW in to pt room to discuss discharge plans. Per Jasmyne BRANDON, pt reported some insecurities about a place to live upon [facility]. Pt is currently here at [facility] on furlough from [facility] and shared he will be released from [facility] in a few weeks. Pt unsure where he will live upon his release. SW gathered resources and provided them to pt. SW inquired about finances and pt reported he gets disability and his money has been adding up since May. when [facility]. Pt reports he should have quite a good sum to assist with obtaining housing. Pt also reported he sees a psychiatrist at [facility], has a pillowcase turner at the [facility] and the nurse at the [facility] has also been a help to him in managing health/mental health concerns. Pt agreeable to reviewing resources provided by this BRANDIN. Pt shared he has no other need of assistance at this time. SARAH Phillips
[2022-01-10] MEDS: 0.9% Normal Saline 1,000 ML 75 ML IV (14:15)
--- NOTE | 2022-01-10 17:02 | PN_ITS ---
Subjective Subjective Patient underwent an MRI this afternoon. His abdominal pain is little better. He rates it at a 5 out of 10 and is more diffuse rather than localized. Objective Data Objective Data Vital Signs: Vital Signs Temp Pulse Resp BP Pulse Ox O2 Del Method 97.8 F 76 16 105/67 97 Room Air 01/10/22 15:17 01/10/22 15:17 01/10/22 15:17 01/10/22 15:17 01/10/22 15:17 01/10/22 15:17 Oxygen Delivery Method Room Air Weight: 197 lb 8.547 oz Body Mass Index (BMI) 31.8 Intake & Output: Intake and Output for Last 24 Hours 01/08/22 01/09/22 01/10/22 23:59 23:59 23:59 Intake Total 400 / 400 1528.75 / 1528.75 Balance 400 / 400 1528.75 / 1528.75 Lab / Micro Data Result Diagrams: 01/10/22 06:25 01/10/22 06:25 Labs: Laboratory Results - last 24 hr 01/10/22 06:25: WBC 2.7 L, RBC 3.77 L, Hgb 10.8 L, Hct 32.8 L, MCV 87.0, MCH 28.6, MCHC 32.9, RDW Std Deviation 43.6, RDW Coeff of Tesfaye 13.8, Plt Count 112 L, MPV 9.4, Immature Gran % (Auto) 0.400, Neut % (Auto) 28.8 L, Lymph % (Auto) 52.6 H, Andrew % (Auto) 16.0 H, Eos % (Auto) 1.5, Baso % (Auto) 0.7, Absolute Neuts (auto) 0.8 L, Absolute Lymphs (auto) 1.41, Nucleated RBC % 0 01/10/22 06:25: Sodium 141, Potassium 3.8, Chloride 106, Carbon Dioxide 29.0, An ion Gap 6, BUN 10, Creatinine 0.84, Estim Creat Clear Calc 100.21, Est GFR (MDRD) Af Amer 127, Est GFR (MDRD) Non-Af 105, BUN/Creatinine Ratio 11.9, Glucose 91, Calcium 8.4 L, Total Bilirubin 4.60 H, AST 1028 H, ALT 1962 H, Alkaline Phosphatase 160 H, Total Protein 5.7 L, Albumin 2.8 L, Globulin 2.9, Albumin/Globulin Ratio 1.0 01/10/22 08:15: PT 13.6, INR 1.1, APTT 36.3 H 01/10/22 08:15: Ferritin 4512 H, Lactate Dehydrogenase 346 H 01/10/22 08:15: Total Creatine Kinase 53 01/10/22 08:15: HIV 1&2 Antibody Non-Reactive Radiography Diagnostic Testing: Radiology Impression MRCP 01/10/22 05:55 IMPRESSION: Marked thickening of the wall of the gallbladder with stranding in the pericholecystic fat planes visualized. Would recommend clinical correlation. Small amount of free fluid is visualized in the pelvis. Scattered peritoneal lymph nodes visualized most prominent in the hepatic hilum and surrounding the gallbladder. Mildly distended urinary bladder is seen. Degenerative bone changes are seen. Electronically Signed: Jose Biggs MD at 8:20 EDT Reading Location ID and State: [facility] / [place] Tel , Service support , Abdomen/Pelvis CT 01/10/22 07:16 IMPRESSION: Marked thickening of the wall of the gallbladder with stranding in the pericholecystic fat planes visualized. Would recommend clinical correlation. Small amount of free fluid is visualized in the pelvis. Scattered peritoneal lymph nodes visualized most prominent in the hepatic hilum and surrounding the gallbladder. Mildly distended urinary bladder is seen. Degenerative bone changes are seen. Electronically Signed: Jose Biggs MD at 8:20 EDT , Physical Exam Narrative GENERAL: cooperative HEENT: Atraumatic; EYES; icteric, NECK; supple, normal thyroid, RESPIRATORY: Diminished to auscultation CARDIOVASCULAR: Regular S1 S2, GI: soft, normoactive bowel sounds, : No Renal angle tenderness; EXTREMITIES: No edema, no clubbing, MUSCULOSKELETAL: no muscle wasting NEURO: Awake; no lateralizing signs. SKIN: No Rash PSYCH; Flat affect Assessment & Plan Assessment/Plan (1) Acute hepatitis: PLAN: Work-up is still in place for acute hepatitis. Suspecting that it is more ischemic versus viral hepatitis. He is not showing any signs and he does not give a history of autoimmune consistent with autoimmune hepatitis. However wor k-up is in progress. His INR, PT PTT is normal. (2) Hyperbilirubinemia: PLAN: Hyperbilirubinemia is improving consistent with improving liver enzymes and liver function tests. (3) Elevated liver enzymes: PLAN: Elevated liver enzymes secondary to acute hepatitis with increased LDH and hyper ferritin anemia secondary to liver inflammation (4) Cholecystitis: PLAN: . The MRI also confirms what is seen on the CT scan abdomen pelvis. There is some ductal dilation but it is only mild. It does not show any signs of choledochal cysts and I do not suspect any stricturing disease that would cause the ductal dilation. I will wait to see if this is local inflammation. He still may need to be evaluated for cholecystectomy however I would like to see if there is any signs of viral hepatitis. Charges/Coding Visit Charges Inpatient E&M: 25253 Subs Hosp L3
[2022-01-10] MEDS: MELATONIN 3 MG TABLET PO (20:46)
[2022-01-10] MEDS: lamoTRIgine 100 MG Tablet PO (20:46)
[2022-01-11] MEDS: 0.9% Normal Saline 1,000 ML 75 ML IV ×2 (01:51→15:16)
[2022-01-11 03:25] VITALS: BP 98/59; PULSE 63; RESP 14; TEMP 36.6; O2SAT 99
[2022-01-11 07:33] LABS: Absolute Lymphocyte Count 1.63 X10^3/uL (0.83-4.51); Absolute Neutrophil Count 1.8 X10^3/uL (2.0-7.7); Basophil# 0.04 X10^3/uL; Basophil% 0.9 % (0-1); Eosinophil# 0.13 X10^3/uL; Hematocrit 32.5 % (40-54); Hemoglobin 11.1 g/dL (13.0-16.5); Lymphocyte # 1.63 X10^3/ul (0.83-4.51); Lymphocyte % 37.6 % (19-41); Mean Corp Hgb Conc 34.2 g/dL (32-36); Mean Corpuscular Hgb 29.1 pg (27.0-32.0); Mean Corpuscular Volume 85.1 fL (80-94); Mean Platelet Vol. 9.4 fl (6.2-12.0); Monocyte# 0.68 X10^3/uL; Monocyte% 15.7 % (0-10); NRBC Flagged by Analyzer 0 % (0-5); Neutrophil # 1.82 X10^3/uL (2.7-7.7); Neutrophil % 42.1 % (47-70); Platelet Count 137 K/mm3 (150-450); RBC Distribution Width CV 14.2 % (11.6-14.6); Red Blood Count 3.82 M/mm3 (4.6-6.2); White Blood Count 4.3 K/mm3 (4.4-11.0)
--- NOTE | 2022-01-11 07:45 | PCM.PN.HOSP ---
Subjective Subjective Patient seen abdominal pain appears to be easing up. No significant change in LFTs. Awaiting acute viral hepatitis levels. Objective Data Objective Data Vital Signs: Vital Signs Temp Pulse Resp BP Pulse Ox O2 Del Method 97.8 F 63 14 98/59 L 99 Room Air 01/11/22 03:25 01/11/22 03:25 01/11/22 03:25 01/11/22 03:25 01/11/22 03:25 01/11/22 03:25 Oxygen Delivery Method Room Air Weight: 89.6 kg Body Mass Index (BMI) 31.8 Intake & Output: Intake and Output for Last 24 Hours 01/09/22 01/10/22 01/11/22 23:59 23:59 23:59 Intake Total 400 / 400 2328.75 / 2728.75 1620 / 1620 Balance 400 / 400 2328.75 / 2728.75 1620 / 1620 Lab / Micro Data Result Diagrams: 01/11/22 06:35 01/11/22 06:35 Labs: Laboratory Results - last 24 hr 01/10/22 08:15: PT 13.6, INR 1.1, APTT 36.3 H 01/10/22 08:15: Ferritin 4512 H, Lactate Dehydrogenase 346 H 01/10/22 08:15: Total Creatine Kinase 53 01/10/22 08:15: HIV 1&2 Antibody Non-Reactive 01/11/22 06:35: WBC 4.3 L, RBC 3.82 L, Hgb 11.1 L, Hct 32.5 L, MCV 85.1, MCH 29.1, MCHC 34.2, RDW Std Deviation 44.0 H, RDW Coeff of Tesfaye 14.2, Plt Count 137 L, MPV 9.4, Immature Gran % (Auto) 0.700, Neut % (Auto) 42.1 L, Lymph % (Auto) 37.6, Baker % (Auto) 15.7 H, Eos % (Auto) 3.0, Baso % (Auto) 0.9, Absolute Neuts (auto) 1.8 L, Absolute Lymphs (auto) 1.63, Nucleated RBC % 0 Radiography Diagnostic Testing: Radiology Impression MRCP 01/10/22 05:55 IMPRESSION: Marked thickening of the wall of the gallbladder with stranding in the pericholecystic fat planes visualized. Would recommend clinical correlation. Small amount of free fluid is visualized in the pelvis. Scattered peritoneal lymph nodes visualized most prominent in the hepatic hilum and surrounding the gallbladder. Mildly distended urinary bladder is seen. Degenerative bone changes are seen. Electronically Signed: Jose Biggs MD at 8:20 EDT Reading Location ID and State: [facility] / [place] Tel , Service support , Abdomen/Pelvis CT 01/10/22 07:16 IMPRESSION: Marked thickening of the wall of the gallbladder with stranding in the pericholecystic fat planes visualized. Would recommend clinical correlation. Small amount of free fluid is visualized in the pelvis. Scattered peritoneal lymph nodes visualized most prominent in the hepatic hilum and surrounding the gallbladder. Mildly distended urinary bladder is seen. Degenerative bone changes are seen. Electronically Signed: Jose Biggs MD at 8:20 EDT Reading Location ID and State: [facility] / [place] Tel , Service support , Physical Exam Narrative GENERAL: cooperative HEENT: Atraumatic; EYES; icteric, NECK; supple, normal thyroid, RESPIRATORY: Diminished to auscultation CARDIOVASCULAR: Regular S1 S2, GI: soft, normoactive bowel sounds, : No Renal angle tenderness; EXTREMITIES: No edema, no clubbing, MUSCULOSKELETAL: no muscle wasting NEURO: Awake; no lateralizing signs. SKIN: No Rash PSYCH; Flat affect Assessment & Plan Assessment/Plan (1) Cholecystitis: (2) Elevated liver enzymes: (3) Hyperbilirubinemia: PLAN: Plan Patient is a 46-year-old gentleman who presented to [facility] with abdominal pain. Found to have abnormal LFTs and CT findings suspicious for acute cholecystitis transferred to [facility] 1. Acute hepatitis ? Patient has been admitted to regular nursing floor with consultation placed to GI. Patient was seen in consultation by Dr. Easton his notes and recommendations and diagnostic order order placed by him reviewed -01/11/2022: Patient seen abdominal pain appears to be easing up. No significant change in LFTs. Awaiting acute viral hepatitis levels. Patient was seen in consultation by Dr. Easton Case discussed with him the day prior 2. Inflamed gallbladder ? Thought to be secondary to a reaction to local liver inflammation 3. Schizoaffective disorder ? Did continue patient home meds 4. Tobacco dependence - Counseled on cessation, offered nicotine patch for tobacco cravings 5. DVT prophylaxis ? Low risk did encourage ambulation Charges/Coding Visit Charges Inpatient E&M: 54150 Subs Hosp L2
[2022-01-11 07:49] VITALS: O2SAT 95
[2022-01-11 08:03] VITALS: BP 99/77; PULSE 68; RESP 16; TEMP 36.5; O2SAT 98
[2022-01-11 08:03] LABS: International Normalized Ratio 1.1; Prothrombin Time (Protime)PT. 13.7 SECONDS (11.7-14.9)
[2022-01-11 08:08] LABS: Hep C Antibodies <0.1 s/co ratio (0.0-0.9); Hepatitis A IgM Antibody Negative (Negative); Hepatitis B Core AB IgM Positive (Negative)
[2022-01-11 08:24] LABS: AST(SGOT) 1120 U/L (15-37); Alanine Aminotransfer ALT/SGPT 2004 U/L (16-61); Albumin, Serum 2.8 g/dL (3.2-5.0); Alkaline Phosphatase 169 U/L (45-117); Anion Gap 5 (5-15); BUN 13 mg/dL (7-18); BUN/Creat Ratio 15.7 RATIO (10-20); Bilirubin, Direct 4.02 mg/dL (0.00-0.30); Calcium,Total 8.4 mg/dL (8.5-10.1); Chloride 106 mmol/L (98-107); Creatinine, Serum 0.83 mg/dL (0.70-1.30); EST Glomerular Filtration Rate 107 mL/min (>60); Est Glom Filt Rate - Afr Amer 129 mL/min (>60); Estimated Creatinine Clearance 101.42 ml/min; Glucose 88 mg/dL (74-106); Phosphorus 3.5 mg/dL (2.5-4.9); Potassium 4.5 mmol/L (3.5-5.1); Protein, Total 5.8 g/dL (6.4-8.2); Sodium Level 140 mmol/L (136-145)
[2022-01-11] MEDS: buPROPion (XL) 150 MG TABLET.XL PO (08:42)
[2022-01-11] MEDS: Benztropine Mesylate 0.5 MG TABLET PO ×2 (08:42→22:24)
[2022-01-11] MEDS: Escitalopram Oxalate 20 MG Tablet PO (08:42)
[2022-01-11] MEDS: RisperiDONE 2 MG Tablet PO ×2 (08:42→22:24)
[2022-01-11 11:26] VITALS: BP 91/61; PULSE 83; RESP 16; TEMP 36.6; O2SAT 98
--- NOTE | 2022-01-11 11:46 | CASEMGMT ---
Addendum entered by Ana Villatoro 01/11/22 11:52: Discussed with Charge Nurse, Dot, who confirmed already has contact number and document regarding furlough on pt chart. Dot aware of the plan of discharge for pt. Original Note: Social Work SW notified by [employer] that phone call came for [address] regarding pt discharge. SW called the number provided and spoke to court Rep who requested that the hospital call [facility] at [phone] when pt is ready to be discharged. The rep stated an officer will come to pick pt up upon discharge. Rep also asked for an email to send furlough documents. SW provided email address and will place copies of this document on pt chart after receiving. PLAN: Release pt to [facility] officer, when medically ready. (see number above to contact) SARAH Phillips
[2022-01-11 14:09] LABS: HEPATITIS B SURFACE AG Positive (Negative)
[2022-01-11 15:19] VITALS: BP 105/68; PULSE 69; RESP 16; TEMP 37.1; O2SAT 100
[2022-01-11 15:19] LABS: Alpha Antitrypsin Serum 190 mg/dL (101-187)
[2022-01-11 16:18] LABS: Anti-Mitochondrial AB <20.0 Units (0.0-20.0)
--- NOTE | 2022-01-11 17:04 | PN_ITS ---
Subjective Subjective Patient says his abdominal pain is still about a 5 out of 10 but is not any worse than yesterday. He is tolerating a diet. Objective Data Objective Data Vital Signs: Vital Signs Temp Pulse Resp BP Pulse Ox O2 Del Method 98.8 F 69 16 105/68 100 Room Air 01/11/22 15:19 01/11/22 15:19 01/11/22 15:19 01/11/22 15:19 01/11/22 15:01/11/22 15:19 Oxygen Delivery Method Room Air Weight: 197 lb 8.547 oz Body Mass Index (BMI) 31.8 Intake & Output: Intake and Output for Last 24 Hours 01/09/22 01/10/22 01/11/22 23:59 23:59 23:59 Intake Total 400 / 400 2328.75 / 2728.75 3270 / 3270 Balance 400 / 400 2328.75 / 2728.75 3270 / 3270 Lab / Micro Data Result Diagrams: 01/11/22 06:35 01/11/22 06:35 Labs: Laboratory Results - last 24 hr 01/10/22 06:25: Hepatitis A IgM Ab Negative, Hep Bs Antigen Positive H, Hep B Core IgM Ab Positive H, Hepatitis C Ab (EIA) <0.1, Hep C Ab Comment Comment 01/10/22 08:15: Anti-Mitochondrial Ab <20.0 01/10/22 08:15: [id number] 190 H 01/11/22 06:35: WBC 4.3 L, RBC 3.82 L, Hgb 11.1 L, Hct 32.5 L, MCV 85.1, MCH 29.1, MCHC 34.2, RDW Std Deviation 44.0 H, RDW Coeff of Tesfaye 14.2, Plt Count 137 L, MPV 9.4, Immature Gran % (Auto) 0.700, Neut % (Auto) 42.1 L, Lymph % (Auto) 37.6, Valencia % (Auto) 15.7 H, Eos % (Auto) 3.0, Baso % (Auto) 0.9, Absolute Neuts (auto) 1.8 L, Absolute Lymphs (auto) 1.63, Nucleated RBC % 0 01/11/22 06:35: PT 13.7, INR 1.1 01/11/22 06:35: Sodium 140, Potassium 4.5, Chloride 106, Carbon Dioxide 29.0, Anion Gap 5, BUN 13, Creatinine 0.83, Estim Creat Clear Calc 101.42, Est GFR (MDRD) Af Amer 129, Est GFR (MDRD) Non-Af 107, BUN/Creatinine Ratio 15.7, Glucose 88, Calcium 8.4 L, Phosphorus 3.5, Magnesium 2.0, Total Bilirubin 4.80 H , Direct Bilirubin 4.02 H, AST 1120 H, ALT 2004 H, Alkaline Phosphatase 169 H, Total Protein 5.8 L, Albumin 2.8 L, Globulin 3.0 Physical Exam Narrative GENERAL: cooperative HEENT: Atraumatic; EYES; icteric, NECK; supple, normal thyroid, RESPIRATORY: Diminished to auscultation CARDIOVASCULAR: Regular S1 S2, GI: soft, normoactive bowel sounds, : No Renal angle tenderness; EXTREMITIES: No edema, no clubbing, MUSCULOSKELETAL: no muscle wasting NEURO: Awake; no lateralizing signs. SKIN: No Rash PSYCH; Flat affect Assessment & Plan Assessment/Plan (1) Acute hepatitis B: PLAN: Acute hepatitis B without hepatic coma. He is a child H[place] class A without any pre-existing history of liver disease. His LFTs and liver enzymes are staying about the same. I was initially going to put him on Baraclude which is Entecavir therapy. However according to his study in 2010 this is off label treatment for acute hepatitis B and the patient does not have severe acute liver failure. Meaning ,he does not have encephalopathy or any signs of GI bleeding. Also he does not have cirrhosis and should not develop any signs of severe liver disease secondary to acute hepatitis B. Monotherapy with entecavir, a new generation drug, showed encouraging preliminary results in patients affected by acute severe hepatitis B. Furthermore clinical trials of long-term entecavir treatment of chronic hepatitis B have shown a very low rate of resistance to this drug compared with other antiviral. So in severe acute hepatitis B, this drug seems to be a good reasonable choice when resistance profile is high or the patient could be considered at risk of infection by resistant virus.? However I do not know the patient?s viral HBV resistance profile. My main concerns about the use of anti-HBV drugs during the acute phase are principally linked to two factors: first, the antiviral therapy is generally not necessary because more than 95% of acute infections solve spontaneously. Second, early antiviral therapy theoretically may inhibit the production of neutralizing antibody in the early phase of the disease and delays the appearance of anti- HBs. In a recent study lamivudine used in acute hepatitis B has been reported to determine a reduced anti-HBs seroconversion as compared to patients not receiving the antiviral,?Usually anti-HBs appear after one - two months from HBsAg disappearance, although in some patients not being treated with antiviral drugs, antibodies could not appear in weeks or even months. Usually antibodies anti-HBs appeared after about four months from the disappearance of the HBsAg. The duration of antiviral treatment is not established; we stopped entecavir at seroconversion to anti-HBs. However, this issue is still controversial: EASL guidelines recommend therapy to be continued for at least 3 months after anti-HBs appearance?while AASLD ones until HBsAg clearance is confirmed Further studies are necessary to support the appropriateness and the duration of entecavir treatment in cases of acute severe hepatitis B. Meanwhile the possible use of this drug should be considered for selected patients with acute hepatitis B. Charges/Coding Visit Charges Inpatient E&M: 65844 Subs Hosp L3
[2022-01-11 22:20] VITALS: BP 104/70; PULSE 75; RESP 18; TEMP 37.3; O2SAT 98
[2022-01-11] MEDS: lamoTRIgine 100 MG Tablet PO (22:25)
[2022-01-11] MEDS: MELATONIN 3 MG TABLET PO (22:25)
[2022-01-12] MEDS: 0.9% Normal Saline 1,000 ML 75 ML IV (04:41)
[2022-01-12 04:47] VITALS: BP 88/59; PULSE 76; RESP 18; TEMP 36.9; O2SAT 97
[2022-01-12 05:21] LABS: Absolute Lymphocyte Count 1.71 X10^3/uL (0.83-4.51); Absolute Neutrophil Count 2.1 X10^3/uL (2.0-7.7); Basophil# 0.03 X10^3/uL; Basophil% 0.7 % (0-1); Eosinophil# 0.11 X10^3/uL; Eosinophils% 2.5 % (0-5); Hematocrit 33.3 % (40-54); Hemoglobin 11.4 g/dL (13.0-16.5); Lymphocyte # 1.71 X10^3/ul (0.83-4.51); Lymphocyte % 38.4 % (19-41); Mean Corp Hgb Conc 34.2 g/dL (32-36); Mean Corpuscular Hgb 28.9 pg (27.0-32.0); Mean Corpuscular Volume 84.3 fL (80-94); Mean Platelet Vol. 10.2 fl (6.2-12.0); Monocyte# 0.51 X10^3/uL; Monocyte% 11.5 % (0-10); NRBC Flagged by Analyzer 0 % (0-5); Neutrophil # 2.06 X10^3/uL (2.7-7.7); Neutrophil % 46.2 % (47-70); Platelet Count 143 K/mm3 (150-450); RBC Distribution Width CV 14.3 % (11.6-14.6); RBC Distribution Width SD 43.8 fl (35.1-43.9); Red Blood Count 3.95 M/mm3 (4.6-6.2); White Blood Count 4.5 K/mm3 (4.4-11.0)
[2022-01-12 05:57] LABS: AST(SGOT) 1471 U/L (15-37); Alanine Aminotransfer ALT/SGPT 2194 U/L (16-61); Albumin, Serum 2.8 g/dL (3.2-5.0); Alkaline Phosphatase 170 U/L (45-117); Anion Gap 8 (5-15); BUN 12 mg/dL (7-18); BUN/Creat Ratio 14.7 RATIO (10-20); Bilirubin, Direct 4.58 mg/dL (0.00-0.30); Calcium,Total 8.4 mg/dL (8.5-10.1); Chloride 105 mmol/L (98-107); Creatinine, Serum 0.82 mg/dL (0.70-1.30); EST Glomerular Filtration Rate 108 mL/min (>60); Est Glom Filt Rate - Afr Amer 131 mL/min (>60); Estimated Creatinine Clearance 102.66 ml/min; Globulin 3.3 g/dL (2.2-4.2); Glucose 87 mg/dL (74-106); Potassium 4.2 mmol/L (3.5-5.1); Protein, Total 6.1 g/dL (6.4-8.2); Sodium Level 137 mmol/L (136-145)
[2022-01-12 06:30] VITALS: BP 90/57; PULSE 68; RESP 18; TEMP 36.7; O2SAT 97
[2022-01-12 07:08] LABS: Ceruloplasmin 25.2 mg/dL (16.0-31.0)
--- NOTE | 2022-01-12 07:22 | DS.PCM_ITS ---
Providers Date of Admission: 01/09/22 Date of Discharge: 01/12/22 Primary Care Physician: Mervat Primary Care Phys Consultations 01/09/22 22:13 Consult: Gastroenterology Routine Consulting Provider: Dick Easton Reason for Consult: Acute cholecystitis EMERGENT Consult: No MD Notified: Yes Date Notified: 01/10/22 Time Notified: 06:04 Method of Notification: backline Reason For Visit: ABDOMINAL PAIN Diagnosis Discharge Diagnosis (1) Acute hepatitis B: Status: Acute Code(s): B16.9 - Acute hepatitis B without delta-agent and without hepatic coma Plan Patient is a 46-year-old gentleman who presented to [facility] with abdominal pain. Found to have abnormal LFTs and CT findings suspicious for acute cholecystitis transferred to [facility] 1. Acute hepatitis ? Patient has been admitted to regular nursing floor with consultation placed to GI. Patient was seen in consultation by Dr. Easton his notes and recomm endations and diagnostic order order placed by him reviewed -01/11/2022: Patient seen abdominal pain appears to be easing up. No significant change in LFTs. Awaiting acute viral hepatitis levels. Patient was seen in consultation by Dr. Easton Case discussed with him the day prior?patient acute hepatitis panel came back positive for hepatitis B. Case was discussed with Dr. Easton patient will be managed conservatively for now. He was discharged home with instructions to follow-up with Dr. Easton as outpatient 2. Inflamed gallbladder ? Thought to be secondary to a reaction to local liver inflammation 3. Schizoaffective disorder ? Did continue patient home meds 4. Tobacco dependence - Counseled on cessation, offered nicotine patch for tobacco cravings 5. DVT prophylaxis ? Low risk did encourage ambulation Medications at Discharge Home Medications benztropine 2 mg tablet 0.5 mg PO BID mood 02/19/15 bupropion HCl 150 mg tablet,12 hr sustained-release 150 mg PO DAILY mood 02/19/15 escitalopram oxalate 20 mg tablet 20 mg PO DAILY mood 02/19/15 risperidone 2 mg tablet 2 mg PO BID anxiety 11/17/17 hydroxyzine HCl 50 mg tablet 50 mg PO TID PRN Anxiety 02/11/18 Lamictal 100 mg QHS 01/09/22 ibuprofen 400 mg tablet 600 mg PO Q8H PRN Pain 01/09/22 melatonin 10 mg QHS PRN Sleep 01/09/22 Hospital Course Summary of Care Provided Minutes Spent on Discharge: 35 Physical Exam Narrative GENERAL: cooperative HEENT: Atraumatic; EYES; icteric, NECK; supple, normal thyroid, RESPIRATORY: Diminished to auscultation CARDIOVASCULAR: Regular S1 S2, GI: soft, normoactive bowel sounds, : No Renal angle tenderness; EXTREMITIES: No edema, no clubbing, MUSCULOSKELETAL: no muscle wasting NEURO: Awake; no lateralizing signs. SKIN: No Rash PSYCH; Flat affect Weight / BMI Weight Weight: 89.6 kg Body Mass Index (BMI) 31.8 ABG / Lab / Microbiology Data Result Diagrams: 01/12/22 04:48 01/12/22 04:48 Laboratory: Laboratory Results - last 24 hr 01/10/22 06:25: Hepatitis A IgM Ab Negative, Hep Bs Antigen Positive H, Hep B Core IgM Ab Positive H, Hepatitis C Ab (EIA) <0.1, Hep C Ab Comment Comment 01/10/22 08:15: Anti-Mitochondrial Ab <20.0 01/10/22 08:15: Plybs-4-Lfbbdvofygl 190 H 01/11/22 06:35: WBC 4.3 L, RBC 3.82 L, Hgb 11.1 L, Hct 32.5 L, MCV 85.1, MCH 29.1, MCHC 34.2, RDW Std Deviation 44.0 H, RDW Coeff of Tesfaye 14.2, Plt Count 137 L, MPV 9.4, Immature Gran % (Auto) 0.700, Neut % (Auto) 42.1 L, Lymph % (Auto) 37.6, Dougherty % (Auto) 15.7 H, Eos % (Auto) 3.0, Baso % (Auto) 0.9, Absolute Neuts (auto) 1.8 L, Absolute Lymphs (auto) 1.63, Nucleated RBC % 0 01/11/22 06:35: PT 13.7, INR 1.1 01/11/22 06:35: Sodium 140, Potassium 4.5, Chloride 106, Carbon Dioxide 29.0, Anion Gap 5, BUN 13, Creatinine 0.83, Estim Creat Clear Calc 101.42, Est GFR (MDRD) Af Amer 129, Est GFR (MDRD) Non-Af 107, BUN/Creatinine Ratio 15.7, Glucose 88, Calcium 8.4 L, Phosphorus 3.5, Magnesium 2.0, Total Bilirubin 4.80 H , Direct Bilirubin 4.02 H, AST 1120 H, ALT 2004 H, Alkaline Phosphatase 169 H, Total Protein 5.8 L, Albumin 2.8 L, Globulin 3.0 01/12/22 04:48: WBC 4.5, RBC 3.95 L, Hgb 11.4 L, Hct 33.3 L, MCV 84.3, MCH 28.9, MCHC 34.2, RDW Std Deviation 43.8, RDW Coeff of Tesfaye 14.3, Plt Count 143 L, MPV 10.2, Immature Gran % (Auto) 0.700, Neut % (Auto) 46.2 L, Lymph % (Auto) 38.4, Dougherty % (Auto) 11.5 H, Eos % (Auto) 2.5, Baso % (Auto) 0.7, Absolute Neuts (auto) 2.1, Absolute Lymphs (auto) 1.71, Nucleated RBC % 0 01/12/22 04:48: Sodium 137, Potassium 4.2, Chloride 105, Carbon Dioxide 24.0, Anion Gap 8, BUN 12, Creatinine 0.82, Estim Creat Clear Calc 102.66, Est GFR (MDRD) Af Amer 131, Est GFR (MDRD) Non-Af 108, BUN/Creatinine Ratio 14.7, Glucose 87, Calcium 8.4 L, Total Bilirubin 5.70 H, Direct Bilirubin 4.58 H, AST 1471 H, ALT 2194 H, Alkaline Phosphatase 170 H, Total Protein 6.1 L, Albumin 2.8 L, Globulin 3.3 D/C Instructions Discharge Diet: No restrictions Discharge Activity: Return to Normal Activity Call your doctor if you observe: Fever of 101 or Higher, Shortness of breath, Fainting spells and Chest pain Meaningful Use Info Meaningful Use Diagnoses (Choose all that apply): None applicable Discharge Plan Admission Admit Date/Time: 01/09/22 21:37 Attending Provider: Murali Mack Primary Care Provider: Care Physician,No Primary Consulting Providers: Friend,Dick ; Hans Monterroso Discharge Orders/Prescriptions Prescriptions: Continued bupropion HCl 150 MG tablet sustained-release 12 hr 150 mg PO DAILY benztropine 2 MG tablet 0.5 mg PO BID escitalopram oxalate 20 MG tablet 20 mg PO DAILY risperidone 2 MG tablet 2 mg PO BID hydroxyzine HCl 50 MG tablet 50 mg PO TID PRN (Reason: Anxiety) ibuprofen 400 mg Tablet 600 mg PO Q8H PRN (Reason: Pain) Lamictal 100 mg QHS melatonin 10 mg QHS PRN (Reason: Sleep) Referrals / Follow Up: Friend,DO Dick [Med Staff - Active Staff] - In 1 Week Care Physician,No Primary [Primary Care Provider] - Disposition Disposition (needs filled in before D/C Order can be placed): Home, Self Care Charges/Coding Visit Charges Inpatient E&M: 58395 Disch Hosp
[2022-01-12 08:17] LABS: Anti-Smooth Muscle ABS 13 Units (0-19); CMV Acute Antibody IgM < 30.0 AU/mL (0.0-29.9); Copper, Serum or Plasma 121 ug/dL (69-132); EBV Acute VCA IgM < 36.0 U/mL (0.0-35.9); EBV Nuclear Antigen IgG > 600.0 U/mL (0.0-17.9)
[2022-01-12 08:29] LABS: LDH 505 U/L (87-241)
[2022-01-12 08:53] LABS: International Normalized Ratio 1.1; Prothrombin Time (Protime)PT. 14.2 SECONDS (11.7-14.9)
[2022-01-12 09:13] LABS: Lactic Acid 0.8 mmol/L (0.4-1.9)
[2022-01-12 09:24] VITALS: BP 113/69; PULSE 67; RESP 18; TEMP 37; O2SAT 98
[2022-01-12] MEDS: RisperiDONE 2 MG Tablet PO (09:28)
[2022-01-12] MEDS: Benztropine Mesylate 0.5 MG TABLET PO (09:28)
[2022-01-12] MEDS: buPROPion (XL) 150 MG TABLET.XL PO (09:28)
[2022-01-12] MEDS: Escitalopram Oxalate 20 MG Tablet PO (09:28)
--- NOTE | 2022-01-12 09:32 | PHA.DC.MR ---
Pharmacy Service has performed discharge medication reconciliation for this patient. The patient's discharge medication list was reviewed for discrepancies and discrepancies were resolved. Home Medications benztropine 2 mg tablet 0.5 mg PO BID mood 02/19/15 bupropion HCl 150 mg tablet,12 hr sustained-release 150 mg PO DAILY mood 02/19/15 escitalopram oxalate 20 mg tablet 20 mg PO DAILY mood 02/19/15 risperidone 2 mg tablet 2 mg PO BID anxiety 11/17/17 hydroxyzine HCl 50 mg tablet 50 mg PO TID PRN Anxiety 02/11/18 Lamictal 100 mg PO/SL QHS Check with primary doctor 01/09/22 ibuprofen 400 mg tablet 600 mg PO Q8H PRN Pain 01/09/22 melatonin 10 mg PO/SL QHS PRN Sleep 01/09/22
[2022-01-13 03:08] LABS: Haptoglobin 43 mg/dL (23-355)
[2022-01-13 10:09] LABS: QNTFERON TB Mitogen Value > 10.00 IU/mL (.); QNTFERON TB Nil Value 0.09 IU/mL (.); QNTFERON TB1+ Ag Value 0.08 IU/mL (.); QNTFERON TB2+ Ag Value 0.06 IU/mL (.)
[2022-01-13 14:41] LABS: QNTIFERON TB Positive Criteria Negative (Negative)
== END 2022-01-12 11:24 | disposition home or self-care (01) | DRG 443 ==
PROVIDERS: Hospitalist; Internal Medicine Gastroenterology; Admitting Provider Internal Medicine; Visit Provider Internal Medicine
DX: B16.9 Acute hepatitis B without delta-agent and without hepatic coma (principal); F25.9 Schizoaffective disorder, unspecified; F41.9 Anxiety disorder, unspecified; F32.A Depression, unspecified; Z79.899 Other long term (current) drug therapy; Z87.891 Personal history of nicotine dependence; Z80.0 Family history of malignant neoplasm of digestive organs
CPT/HCPCS: 36415; 74177; 74181; 80048; 80053; 80074; 80076; 82103; 82390; 82525; 82550; 82728; 83010; 83516; 83605; 83615; 83735; 84100; 85025; 85610; 85730; 86480; 86645; 86664; 86665; 86703; 97802; 99406; J7030; J7040; Q9967

== ENCOUNTER 2022-01-14 16:52 | Inpatient (IN) | payer OTHER, MEDICARE, SELFPAY ==
[2022-01-14] VITALS (7 sets, daily range): BP systolic 107–127; BP diastolic 62–77; PULSE 71–91; RESP 14–18; TEMP 36.7–37.1; O2SAT 94–98; BMI 32.5
--- NOTE | 2022-01-14 18:10 | EDS_ITS ---
HPI History of Present Illness Chief Complaint: Abn Labs Narrative Narrative: [id number] male with history of hepatitis B presenting with worsening LFTs. He states he has been in correction since May. Recently hospitalized for this. He had a consult from GI here at [facility] and his LFTs were trended for 3 days and they had not significantly changed. He was discharged back to correction and repeat lab work was drawn and showed significant increase in the liver enzymes. The patient reports some mild GI upset but nothing significantly had changed. He has not had any black or bloody stools. He has not a fever, chills. No headache. No vomiting. Has been able to eat and drink. He does state he has trouble with the water at the correction which makes him a little bit upset in his stomach but he is able to tolerate this. PFSH PFSH Medical History Anxiety and depression ETOH abuse Hepatitis B Schizo affective schizophrenia Sleep apnea Smoker Home Medications benztropine 2 mg tablet 0.5 mg PO BID mood 02/19/15 [History Last Taken 01/09/22 08:00] bupropion HCl 150 mg tablet,12 hr sustained-release 150 mg PO DAILY mood 02/19/15 [History Last Taken 01/09/22 08:00] escitalopram oxalate 20 mg tablet 20 mg PO DAILY mood 02/19/15 [History Last Taken 01/09/22 08:00] risperidone 2 mg tablet 2 mg PO BID anxiety 11/17/17 [History Last Taken 01/09/22 08:00] hydroxyzine HCl 50 mg tablet 50 mg PO TID PRN Anxiety 02/11/18 [History Last Taken 01/09/22 08:00] Lamictal 100 mg PO/SL QHS Check with primary doctor 01/09/22 [History Last Taken 01/08/22 22:00] ibuprofen 400 mg tablet 600 mg PO Q8H PRN Pain 01/09/22 [History Last Taken 01/09/22 08:00] melatonin 10 mg PO/SL QHS PRN Sleep 01/09/22 [History Last Taken 01/03/22] Allergy/AdvReac Type Severity Reaction Status Date / Time No Known Allergies Allergy Verified 01/14/22 17:01 Family History Other Colon cancer Social History Smoking Status: Former smoker ROS ROS ED Constitutional Constitutional ED: Denies chills or fever(s) Eyes Eyes: Reports other Details: Scleral icterus ; Denies change in vision ENT ENT ED: Denies rhinorrhea Cardiovascular Cardiovascular: Denies chest pain or palpitations Respiratory/Chest Respiratory/Chest: Denies cough or dyspnea Gastrointestinal Gastrointestinal: Reports nausea; Denies diarrhea Genitourinary Genitourinary ED: Denies dysuria or hematuria Musculoskeletal Musculoskeletal: Denies arthralgias or back pain Integumentary Reports other Details: Jaundice ; Denies abscess or Abrasions Neurologic Neurologic: Denies headache(s) or paresthesias EXAM Physical Exam Const Vital Signs: 01/14/22 16:54 01/14/22 17:01 01/14/22 18:19 Temperature 98.2 F 98.8 F Temperature Source Temporal Temporal Pulse Rate 91 80 Respiratory Rate 16 16 Respiratory Effort Normal Respiratory Pattern Normal Blood Pressure 116/68 117/69 Blood Pressure Mean 84 85 Pulse Ox 97 95 Oxygen Delivery Method Room Air Room Air 01/14/22 19:15 Temperature 98.3 F Temperature Source Oral Pulse Rate 71 Respiratory Rate 14 Respiratory Effort Respiratory Pattern Blood Pressure 107/77 Blood Pressure Mean 87 Pulse Ox 98 Oxygen Delivery Method Room Air Positive well nourished General Appearance ED: NAD; Negative for pallor HEENT Reports moist mucous membranes Eyes PERRL and EOMs intact bilaterally General Eye ED: Yes scleral icterus; Negative for pale conjunctiva Neck no lymphadenopathy Chest Wall inspection of chest normal Resp normal respiratory effort Auscultation: Negative for rales, rhonchi or wheezes Cardio regular rate and regular rhythm GI non-tender and non-distended Extremity normal to inspection Neuro oriented x3 and CN's II-XII intact bilaterally Sensorium / Orientation: alert Motor Exam: strength 5/5 throughout Psych mental status grossly normal Skin General Skin Exam: jaundice; Negative for pallor MDM MDM MDM Narrative Medical decision making narrative: Patient presenting with abnormal lab work. It does appear that his blood work is abnormal here today. His total bilirubin has gone to up to 9.60 and his direct bilirubin is 7.76. This is also increased. His AST and ALT are also increasing. Lipase is normal. CBC shows no leukocytosis. Hemoglobin stable at 12.1. Platelets of 178. I discussed the case with Dr. Easton who stated that there are some treatments for hepatitis B but he recommended transfer to a tertiary facility that had hepatobiliary specialty because of these do not work he will need to be evaluated for possible liver transplant. Patient really does not have a worsening of his symptoms he complains of some mild GI upset. His exam is benign. His vital signs are stable. He does have jaundice and scleral icterus. INR was normal at 1.1 today earlier. I spoke with Dr. Mckenzie at [facility] who is a gastrointestinal specialist. She accepted transfer. She recommended keeping him hydrated. She states that he can take his regular medications and he can eat as long as he does not have any raw seafood. She recommended cutting his bupropion dose in half. Patient will be transported when a bed becomes available. Impression: 1. Liver failure Lab Data Labs: Laboratory Results - last 24 hr 01/14/22 01/14/22 18:10 18:10 WBC 4.6 RBC 4.22 L Hgb 12.1 L Hct 36.1 L MCV 85.5 MCH 28.7 MCHC 33.5 RDW Std Deviation 47.7 H RDW Coeff of Tesfaye 15.5 H Plt Count 178 MPV 10.2 Immature Gran % (Auto) 1.100 H Neut % (Auto) 55.4 Lymph % (Auto) 28.6 Burnett % (Auto) 11.4 H Eos % (Auto) 2.6 Baso % (Auto) 0.9 Absolute Neuts (auto) 2.5 Absolute Lymphs (auto) 1.31 Nucleated RBC % 0 Sodium 139 Potassium 4.5 Chloride 103 Carbon Dioxide 29.0 Anion Gap 7 BUN 12 Creatinine 0.78 Estim Creat Clear Calc 107.92 Est GFR (MDRD) Af Amer 137 Est GFR (MDRD) Non-Af 114 BUN/Creatinine Ratio 15.3 Glucose 92 Calcium 9.1 Total Bilirubin 9.60 H Direct Bilirubin 7.76 H AST 2134 H ALT 3019 H Alkaline Phosphatase 183 H Total Protein 6.7 Albumin 3.1 L Globulin 3.6 Lipase 102 Discharge Plan Triage Chief Complaint: Abn Labs ED Provider: Julian Washington Dx/Rx/DC Orders Prescriptions: No Action bupropion HCl 150 MG tablet sustained-release 12 hr 150 mg PO DAILY benztropine 2 MG tablet 0.5 mg PO BID escitalopram oxalate 20 MG tablet 20 mg PO DAILY risperidone 2 MG tablet 2 mg PO BID hydroxyzine HCl 50 MG tablet 50 mg PO TID PRN (Reason: Anxiety) ibuprofen 400 mg Tablet 600 mg PO Q8H PRN (Reason: Pain) Lamictal 100 mg PO/SL QHS melatonin 10 mg PO/SL QHS PRN (Reason: Sleep) Primary Care Provider: Care Physician,No Primary Referrals: Care Physician,No Primary [Primary Care Provider] -
[2022-01-14 18:41] LABS: Absolute Lymphocyte Count 1.31 X10^3/uL (0.83-4.51); Absolute Neutrophil Count 2.5 X10^3/uL (2.0-7.7); Basophil# 0.04 X10^3/uL; Basophil% 0.9 % (0-1); Eosinophil# 0.12 X10^3/uL; Eosinophils% 2.6 % (0-5); Hematocrit 36.1 % (40-54); Hemoglobin 12.1 g/dL (13.0-16.5); Lymphocyte # 1.31 X10^3/ul (0.83-4.51); Lymphocyte % 28.6 % (19-41); Mean Corp Hgb Conc 33.5 g/dL (32-36); Mean Corpuscular Hgb 28.7 pg (27.0-32.0); Mean Corpuscular Volume 85.5 fL (80-94); Mean Platelet Vol. 10.2 fl (6.2-12.0); Monocyte# 0.52 X10^3/uL; Monocyte% 11.4 % (0-10); NRBC Flagged by Analyzer 0 % (0-5); Neutrophil # 2.54 X10^3/uL (2.7-7.7); Neutrophil % 55.4 % (47-70); Platelet Count 178 K/mm3 (150-450); RBC Distribution Width CV 15.5 % (11.6-14.6); RBC Distribution Width SD 47.7 fl (35.1-43.9); Red Blood Count 4.22 M/mm3 (4.6-6.2); White Blood Count 4.6 K/mm3 (4.4-11.0)
[2022-01-14 18:53] LABS: AST(SGOT) 2134 U/L (15-37); Alanine Aminotransfer ALT/SGPT 3019 U/L (16-61); Albumin, Serum 3.1 g/dL (3.2-5.0); Alkaline Phosphatase 183 U/L (45-117); Anion Gap 7 (5-15); BUN 12 mg/dL (7-18); BUN/Creat Ratio 15.3 RATIO (10-20); Bilirubin, Direct 7.76 mg/dL (0.00-0.30); Calcium,Total 9.1 mg/dL (8.5-10.1); Chloride 103 mmol/L (98-107); Creatinine, Serum 0.78 mg/dL (0.70-1.30); EST Glomerular Filtration Rate 114 mL/min (>60); Est Glom Filt Rate - Afr Amer 137 mL/min (>60); Estimated Creatinine Clearance 107.92 ml/min; Globulin 3.6 g/dL (2.2-4.2); Glucose 92 mg/dL (74-106); Lipase 102 U/L (73-393); Potassium 4.5 mmol/L (3.5-5.1); Protein, Total 6.7 g/dL (6.4-8.2); Sodium Level 139 mmol/L (136-145)
[2022-01-14] MEDS: Ondansetron 4 MG/2 ML Vial IV (20:37)
[2022-01-14] MEDS: 0.9% Normal Saline 1,000 ML 150 ML IV (20:37)
[2022-01-14] MEDS: lamoTRIgine 100 MG Tablet PO (23:03)
[2022-01-14] MEDS: MELATONIN 10 MG TABLET PO (23:03)
[2022-01-14] MEDS: Benztropine Mesylate 0.5 MG TABLET PO (23:04)
[2022-01-14] MEDS: RisperiDONE 1 MG Tablet 2 MG PO (23:05)
[2022-01-15] VITALS (7 sets, daily range): BP systolic 101–110; BP diastolic 64–72; PULSE 62–81; RESP 16; TEMP 36.6–37.1; O2SAT 95–99; BMI 30.7
--- NOTE | 2022-01-15 00:56 | NURSING ---
CALLED TO ASK ABOUT BED STATUS AND WAS TOLD THERE WAS STILL NO BED ASSIGNED
[2022-01-15] MEDS: 0.9% Normal Saline 1,000 ML 150 ML IV (03:07)
--- NOTE | 2022-01-15 07:04 | NURSING ---
DR CAROLA CHEN
--- NOTE | 2022-01-15 07:11 | NURSING ---
MED SURG [facility]A ACUTE HEPATITIS B
[2022-01-15 07:24] LABS: Absolute Lymphocyte Count 1.73 X10^3/uL (0.83-4.51); Absolute Neutrophil Count 2.2 X10^3/uL (2.0-7.7); Basophil# 0.04 X10^3/uL; Basophil% 0.9 % (0-1); Eosinophil# 0.14 X10^3/uL; Hematocrit 31.3 % (40-54); Hemoglobin 10.4 g/dL (13.0-16.5); Lymphocyte # 1.73 X10^3/ul (0.83-4.51); Lymphocyte % 37.2 % (19-41); Mean Corp Hgb Conc 33.2 g/dL (32-36); Mean Corpuscular Hgb 28.7 pg (27.0-32.0); Mean Corpuscular Volume 86.2 fL (80-94); Mean Platelet Vol. 10.2 fl (6.2-12.0); Monocyte# 0.53 X10^3/uL; Monocyte% 11.4 % (0-10); NRBC Flagged by Analyzer 0 % (0-5); Neutrophil # 2.16 X10^3/uL (2.7-7.7); Neutrophil % 46.4 % (47-70); Platelet Count 153 K/mm3 (150-450); RBC Distribution Width CV 15.8 % (11.6-14.6); Red Blood Count 3.63 M/mm3 (4.6-6.2); White Blood Count 4.7 K/mm3 (4.4-11.0)
--- NOTE | 2022-01-15 07:26 | HP.PCM.HOS_ITS ---
HPI - General General Date of Admission: 01/15/22 Date of Service: 01/15/22 Chief Complaint: Abnormal liver tests particularly high bilirubin HPI Narrative LORENZA HELTON, is a 46 M who was recently diagnosed acute hepatitis B during previous hospitalization from 01/09 to 01/12/2022 was sent back to home and then brought back of from [facility] for elevated liver chemistry. Patient has been in [facility] for since May. Since previous admission his liver chemistry especially transaminases and TB, and DB are elevated. INR 1.1. Patient states he has mild abdominal discomfort 1-2/10 intensity generalized, diffuse with gaseous and bloating sensation. No abdominal pain. He had 1 vomiting. He states for last 2 weeks he has yellow urine, dark yellow skin with yellow pale-colored stool signs of jaundice. The patient has acute hepatitis B with acute liver injury. In ED physician talked to lead former who recommended transfer to tertiary care and patient excepted in main campus. There is no beds available therefore patient is admitted on the floor. During previous hospitalization, patient was admitted for from [facility] for abdominal pain which he had for 1 and half weeks prior to admission and found to have elevated liver chemistry, jaundice and CT and MRCP findings suggesting acute cholecystitis with marked thickening of wall of GB with a stranding and pericholecystic fat planes. No evidence of gallstone but mild intrahepatic biliary dilatation. Stranding surrounding the CBD but no significant CBD dilatation or CBD stone. PFSH Medical History Anxiety and depression ETOH abuse Hepatitis B Schizo affective schizophrenia Sleep apnea Smoker Home Medications benztropine 2 mg tablet 0.5 mg PO BID mood 02/19/15 [History Last Taken 01/14/22] bupropion HCl 150 mg tablet,12 hr sustained-release 150 mg PO DAILY mood 02/19/15 [History Last Taken 01/14/22] escitalopram oxalate 20 mg tablet 20 mg PO DAILY mood 02/19/15 [History Last Taken 01/14/22] risperidone 2 mg tablet 2 mg PO BID anxiety 11/17/17 [History Last Taken 01/14/22] hydroxyzine HCl 50 mg tablet 50 mg PO TID PRN Anxiety 02/11/18 [History Last Taken 01/14/22] Lamictal 100 mg PO/SL QHS mood 01/09/22 [History Last Taken 01/14/22] ibuprofen 400 mg tablet 600 mg PO Q8H PRN Pain 01/09/22 [History Last Taken 01/09/22 08:00] melatonin 10 mg PO/SL QHS PRN Sleep 01/09/22 [History Last Taken 01/14/22] Allergy/AdvReac Type Severity Reaction Status Date / Time No Known Allergies Allergy Verified 01/14/22 17:01 Family History Other Colon cancer Social History Smoking Status: Former smoker ROS ROS Narrative Constitutional: Reports fatigue and weakness. No fever chills or diaphoresis HEENT: Reports systems reviewed and no addt'l complaints, except as documented Respiratory/Chest: Denies chest pain, shortness of breath at rest or with exertion Gastrointestinal: One-time vomiting admission HPI. No hematemesis melena or hematochezia. Genitourinary: Denies burning urination or new urinary tract symptoms Musculoskeletal: Denies joint pain and limited range of motion Neurologic: Denies seizure-like activity. Psychiatric: Denies suicidal ideation. History of anxiety, depression, mild bipolar and schizoaffective disorder. Multiple antipsychotic medications. skin: No ulcer. No rash Endocrinology: Reports systems reviewed and no addt'l complaints, except as documented Hematologic/Lymphatic: Reports systems reviewed and no addt'l complaints, except as documented Rest 14 ROS are negative except as mentioned in HPI Vital Signs Vital Signs Vital Signs: 01/14/22 16:54 01/14/22 17:01 01/14/22 18:19 Temperature 98.2 F 98.8 F Temperature Source Temporal Temporal Pulse Rate 91 80 Respiratory Rate 16 16 Respiratory Effort Normal Respiratory Pattern Normal Blood Pressure 116/68 117/69 Blood Pressure Mean 84 85 Pulse Ox 97 95 Oxygen Delivery Method Room Air Room Air 01/14/22 19:15 01/14/22 21:00 01/14/22 21:00 Temperature 98.3 F 98.1 F Temperature Source Oral Oral Pulse Rate 71 74 74 Respiratory Rate 14 14 14 Respiratory Effort Respiratory Pattern Blood Pressure 107/77 115/77 115/77 Blood Pressure Mean 87 89 89 Pulse Ox 98 95 95 Oxygen Delivery Method Room Air Room Air Room Air 01/14/22 22:00 01/14/22 23:29 01/14/22 23:41 Temperature 98.1 F 98.1 F Temperature Source Oral Oral Pulse Rate 74 72 72 Respiratory Rate 14 16 18 Respiratory Effort Respiratory Pattern Blood Pressure 127/77 H 107/75 116/62 Blood Pressure Mean 93 85 80 Pulse Ox 97 94 96 Oxygen Delivery Method Room Air Room Air Room Air 01/15/22 01:00 01/15/22 03:00 01/15/22 05:00 Temperature 98.7 F Temperature Source Temporal Pulse Rate 74 Respiratory Rate 16 16 16 Respiratory Effort Respiratory Pattern Blood Pressure 102/72 Blood Pressure Mean 82 Pulse Ox 96 97 96 Oxygen Delivery Method Room Air Room Air Weight Weight: 201 lb 4.513 oz Body Mass Index (BMI) 32.5 Physical Exam Narrative Physical exam General: Alert, Oriented x3, Cooperative HEENT: Conjunctival icterus present atraumatic, PERRLA, EOMI, Normocephalic Oral: No Gingival or Mucosal Lesions/ Ulcerations Neck: Supple, No JVD, Negative Carotid Bruits Lungs: Air entry equal in bilateral lung bases. No crepitation/rhonchi Cardiovascular: Regular rate, Regular Rhythm, Normal S1, Normal S2, No murmurs Abdomen: Bowel Sounds Present, Soft, Non Tender, Non-Distended. Liver not enlarged. liver dullness starts at fifth ICS based on right midclavicular line. No [place] ago. No fluid thrill or palpable ascites : No renal angle tenderness. No suprapubic tenderness. Extremities: No edema, Capillary Refill Less than 3 Seconds Skin: Whole body is yellow. Musculoskeletal: No Tenderness to Palpation of Joints or Extremities Neurological: Cranial nerves II-XII grossly intact, DTR 2+/4 and Symmetrical, Neuro grossly intact Psych/Mental Status: Flat affect. Results Lab / Micro Data Result Diagrams: 01/15/22 07:15 01/15/22 07:15 Labs: Laboratory Results - last 24 hr 01/14/22 18:10: WBC 4.6, RBC 4.22 L, Hgb 12.1 L, Hct 36.1 L, MCV 85.5, MCH 28.7, MCHC 33.5, RDW Std Deviation 47.7 H, RDW Coeff of Tesfaye 15.5 H, Plt Count 178, MPV 10.2, Immature Gran % (Auto) 1.100 H, Neut % (Auto) 55.4, Lymph % (Auto) 28.6, [place] % (Auto) 11.4 H, Eos % (Auto) 2.6, Baso % (Auto) 0.9, Absolute Neuts (auto) 2.5, Absolute Lymphs (auto) 1.31, Nucleated RBC % 0 01/14/22 18:10: Sodium 139, Potassium 4.5, Chloride 103, Carbon Dioxide 29.0, Anion Gap 7, BUN 12, Creatinine 0.78, Estim Creat Clear Calc 107.92, Est GFR (MDRD) Af Amer 137, Est GFR (MDRD) Non-Af 114, BUN/Creatinine Ratio 15.3, Glucose 92, Calcium 9.1, Total Bilirubin 9.60 H, Direct Bilirubin 7.76 H, AST 2134 H, ALT 3019 H, Alkaline Phosphatase 183 H, Total Protein 6.7, Albumin 3.1 L , Globulin 3.6, Lipase 102 01/15/22 07:15: WBC 4.7, RBC 3.63 L, Hgb 10.4 L, Hct 31.3 L, MCV 86.2, MCH 28.7, MCHC 33.2, RDW Std Deviation 49.0 H, RDW Coeff of Tesfaye 15.8 H, Plt Count 153, MPV 10.2, Immature Gran % (Auto) 1.100 H, Neut % (Auto) 46.4 L, Lymph % (Auto) 37.2, [place] % (Auto) 11.4 H, Eos % (Auto) 3.0, Baso % (Auto) 0.9, Absolute Neuts (auto) 2.2, Absolute Lymphs (auto) 1.73, Nucleated RBC % 0 Micro: Microbiology 01/14/22 18:15 Nasal Secretion SARS-CoV-2 Antigen (Rapid) - Final Assessment & Plan Assessment/Plan (1) Acute hepatitis B: PLAN: Plan This is a 46 year gentleman with a recent diagnosis of acute hepatitis B is being admitted in transit to transfer to [facility] for worsening of liver chemistry suggestive of acute liver injury due to acute hepatitis B. 1. Acute liver injury due to acute hepatitis B: The patient is being admitted on MedSurg floor in the interim transit period to final transfer to [facility]. Patient has worsening of transaminases and total bilirubin as compared to previous hospitalization. ALT about 2100 and AST about 1400 jumped to ALT 3000 and AST 2100. Patient has total bilirubin jumped up from 5.7-9.6, direct bilirubin 4.5 up to 7.76, alkaline phosphatase 172 133. Patient has hypoalbumi nemia. INR 1.1. Patient has platelet count on lower side normal 1 43,000, most recent 153,000. Mild normochromic normocytic anemia, 10.4/31%. WBC count normal. The patient had detailed work-up during previous hospital stay, hep B surface antigen positive, core IgM positive. Hep C antibody and hep A IgM negative. CMV IgM, EBV capsid IgM negative.Serum copper, ceruloplasmin level normal. Anti -smooth antibody negative. Assessment: Patient might have acute fulminant hepatitis B with cholestatic pattern with acute liver injury. In such circumstance patient needs urgent transplant work-up and listing prior to consideration of Entecavir, off label treatment. It is good for patient's when chances of resistance is high or risk for distant virus infection. Entecavir is for chronic hepatitis B, not FDA approved for acute hepatitis B. Entecavir can cause worsening of transaminases, total bilirubin therefore needs to be listed first. My recommendation will be conservative management with IV fluid, avoid hepatotoxic medications, monitor intake and output and clinical monitoring. I d o not recommend antiviral therapy prior to transplant listing. Patient does not have encephalopathic symptoms, ascites, GI bleed or signs of decompensation of severe liver disease or cirrhosis. Patient does not meet diagnosis of acute liver failure now but high risk of going into acute liver injury. 2. Multiple chronic psychiatric disorders: Patient has mild anxiety, depression with mild bipolar disorder and schizoaffective disorder: Patient on multiple antipsychotic and antidepressant medications. These include benztropine, bupropion, escitalopram, Lamictal and risperidone. Bupropion, and risperidone are contraindicated in acute liver injury. Lamictal should not be started in acute liver injury but can be continued with close monitoring of liver chemistry.Will hold Lamictal now. Benztropine and escitalopram continued with lower dose. Monitor liver chemistry, INR GGTP daily 3. Recent diagnosis of acute cholecystitis probably due to acute hepatitis B, cholestatic pattern as mentioned above : During recent admission, CT abdomen and MRCP findings suggesting acute cholecystitis with marked thickening of wall of GB with a stranding and pericholecystic fat planes. No evidence of gallstone but mild intrahepatic biliary dilatation. Stranding surrounding the CBD but no significant CBD dilatation or CBD stone. 4. Other chronic comorbidities include tobacco dependence, marijuana smoking and polysubstance use disorder: Patient is smokes a pack of cigarette daily. Smokes marijuana since age of 13. Patient also snorts methamphetamine. 5. DVT moderate risk: Bilateral SCDs. Pharmacologic prophylaxis contraindicated due to acute liver injury with high risk of bleeding Microbiology Past 72 Hours 01/14/22 18:15 Nasal Secretion SARS-CoV-2 Antigen (Rapid) - Final Laboratory Results 01/14/22 18:10: WBC 4.6, RBC 4.22 L, Hgb 12.1 L, Hct 36.1 L, MCV 85.5, MCH 28.7, MCHC 33.5, RDW Std Deviation 47.7 H, RDW Coeff of Tesfaye 15.5 H, Plt Count 178, MPV 10.2, Immature Gran % (Auto) 1.100 H, Neut % (Auto) 55.4, Lymph % (Auto) 28.6, [place] % (Auto) 11.4 H, Eos % (Auto) 2.6, Baso % (Auto) 0.9, Absolute Neuts (auto) 2.5, Absolute Lymphs (auto) 1.31, Nucleated RBC % 0 01/14/22 18:10: Sodium 139, Potassium 4.5, Chloride 103, Carbon Dioxide 29.0, Anion Gap 7, BUN 12, Creatinine 0.78, Estim Creat Clear Calc 107.92, Est GFR (MDRD) Af Amer 137, Est GFR (MDRD) Non-Af 114, BUN/Creatinine Ratio 15.3, Glucose 92, Calcium 9.1, Total Bilirubin 9.60 H, Direct Bilirubin 7.76 H, AST 2134 H, ALT 3019 H, Alkaline Phosphatase 183 H, Total Protein 6.7, Albumin 3.1 L , Globulin 3.6, Lipase 102 01/15/22 07:15: PT Pending, INR Pending, APTT Pending 01/15/22 07:15: WBC 4.7, RBC 3.63 L, Hgb 10.4 L, Hct 31.3 L, MCV 86.2, MCH 28.7, MCHC 33.2, RDW Std Deviation 49.0 H, RDW Coeff of Tesfaye 15.8 H, Plt Count 153, MPV 10.2, Immature Gran % (Auto) 1.100 H, Neut % (Auto) 46.4 L, Lymph % (Auto) 37.2, [place] % (Auto) 11.4 H, Eos % (Auto) 3.0, Baso % (Auto) 0.9, Absolute Neuts (auto) 2.2, Absolute Lymphs (auto) 1.73, Nucleated RBC % 0 Charges/Coding Visit Charges Inpatient E&M: 69306 Init Hosp L3
[2022-01-15 07:46] LABS: AST(SGOT) 1775 U/L (15-37); Alanine Aminotransfer ALT/SGPT 2532 U/L (16-61); Albumin, Serum 2.6 g/dL (3.2-5.0); Alkaline Phosphatase 151 U/L (45-117); Anion Gap 6 (5-15); BUN 11 mg/dL (7-18); BUN/Creat Ratio 13.8 RATIO (10-20); Bilirubin, Direct 7.43 mg/dL (0.00-0.30); Calcium,Total 8.3 mg/dL (8.5-10.1); Chloride 107 mmol/L (98-107); EST Glomerular Filtration Rate 111 mL/min (>60); Est Glom Filt Rate - Afr Amer 134 mL/min (>60); Estimated Creatinine Clearance 105.23 ml/min; Globulin 2.9 g/dL (2.2-4.2); Glucose 87 mg/dL (74-106); Potassium 4.2 mmol/L (3.5-5.1); Protein, Total 5.5 g/dL (6.4-8.2); Sodium Level 140 mmol/L (136-145)
[2022-01-15 07:50] LABS: International Normalized Ratio 1.2; Partial Thromboplast Time 33.5 Seconds (24.1-36.2); Prothrombin Time (Protime)PT. 14.5 SECONDS (11.7-14.9)
[2022-01-15] MEDS: 0.9% Normal Saline 1,000 ML 100 ML IV (09:30)
[2022-01-15] MEDS: Benztropine Mesylate 0.5 MG TABLET PO (11:25)
[2022-01-15] MEDS: Escitalopram Oxalate 10 MG Tablet PO (11:25)
[2022-01-15 12:54] LABS: GGTP 144 U/L (15-85)
--- NOTE | 2022-01-15 14:27 | PCA ---
Received call from [facility], bed available for patient [facility] unit 455 Room 70,
--- NOTE | 2022-01-16 10:38 | DS.PCM_ITS ---
Providers Date of Admission: 01/15/22 Date of Discharge: 01/15/22 Primary Care Physician: No Primary Care Phys Reason For Visit: ACUTE HEPATITIS B Diagnosis Discharge Diagnosis (1) Acute hepatitis B: Status: Acute Code(s): B16.9 - Acute hepatitis B without delta-agent and without hepatic coma Plan This is a 46 year gentleman with a recent diagnosis of acute hepatitis B is being admitted in transit to transfer to [facility] for worsening of liver chemistry suggestive of acute liver injury due to acute hepatitis B. 1. Acute liver injury due to acute hepatitis B: The patient is being admitted on MedSurg floor in the interim transit period to final transfer to [facility]. Patient has worsening of transaminases and total bilirubin as compared to previous hospitalization. ALT about 2100 and AST about 1400 jumped to ALT 3000 and AST 2100. Patient has total bilirubin jumped up from 5.7-9.6, direct bilirubin 4.5 up to 7.76, alkaline phosphatase 172 133. Patient has hypoalbuminemia. INR 1.1. Patient has platelet count on lower side normal 1 43,000, most recent 153,000. Mild normochromic normocytic anemia, 10.4/31%. WBC count normal. The patient had detailed work-up during previous hospital stay, hep B surface antigen positive, core IgM positive. Hep C antibody and hep A IgM negative. CMV IgM, EBV capsid IgM negative.Serum copper, ceruloplasmin level normal. Anti-smooth antibody negative. Assessment: Patient might have acute fulminant hepatitis B with cholestatic pat tern with acute liver injury. In such circumstance patient needs urgent transplant work-up and listing prior to consideration of Entecavir, off label treatment. It is good for patient's when chances of resistance is high or risk for distant virus infection. Entecavir is for chronic hepatitis B, not FDA approved for acute hepatitis B. Entecavir can cause worsening of transaminases, total bilirubin therefore needs to be listed first. My recommendation will be conservative management with IV fluid, avoid hepatotoxic medications, monitor intake and output and clinical monitoring. I do not recommend antiviral therapy prior to transplant listing. Patient does not have encephalopathic symptoms, ascites, GI bleed or signs of decompensation of severe liver disease or cirrhosis. Patient does not meet diagnosis of acute liver failure now but high risk of going into acute liver injury. 2. Multiple chronic psychiatric disorders: Patient has mild anxiety, depression with mild bipolar disorder and schizoaffective disorder: Patient on multiple antipsychotic and antidepressant medications. These include benztropine, bupropion, escitalopram, Lamictal and risperidone. Bupropion, and risperidone are contraindicated in acute liver injury. Lamictal should not be started in acute liver injury but can be continued with close monitoring of liver chemistry.Will hold Lamictal now. Benztropine and escitalopram continued with lower dose. Monitor liver chemistry, INR GGTP daily 3. Recent diagnosis of acute cholecystitis probably due to acute hepatitis B, cholestatic pattern as mentioned above : During recent admission, CT abdomen and MRCP findings suggesting acute cholecystitis with marked thickening of wall of GB with a stranding and pericholecystic fat planes. No evidence of gallstone but mild intrahepatic biliary dilatation. Stranding surrounding the CBD but no significant CBD dilatation or CBD stone. 4. Other chronic comorbidities include tobacco dependence, marijuana smoking and polysubstance use disorder: Patient is smokes a pack of cigarette daily. Smokes marijuana since age of 13. Patient also snorts methamphetamine. 5. DVT moderate risk: Bilateral SCDs. Pharmacologic prophylaxis contraindicated due to acute liver injury with high risk of bleeding Microbiology Past 72 Hours 01/14/22 18:15 Nasal Secretion SARS-CoV-2 Antigen (Rapid) - Final Laboratory Results 01/14/22 18:10: WBC 4.6, RBC 4.22 L, Hgb 12.1 L, Hct 36.1 L, MCV 85.5, MCH 28.7, MCHC 33.5, RDW Std Deviation 47.7 H, RDW Coeff of Tesfaye 15.5 H, Plt Count 178, MPV 10.2, Immature Gran % (Auto) 1.100 H, Neut % (Auto) 55.4, Lymph % (Auto) 28.6, [place] % (Auto) 11.4 H, Eos % (Auto) 2.6, Baso % (Auto) 0.9, Absolute Neuts (auto) 2.5, Absolute Lymphs (auto) 1.31, Nucleated RBC % 0 01/14/22 18:10: Sodium 139, Potassium 4.5, Chloride 103, Carbon Dioxide 29.0, Anion Gap 7, BUN 12, Creatinine 0.78, Estim Creat Clear Calc 107.92, Est GFR ( RD) Af Amer 137, Est GFR (MDRD) Non-Af 114, BUN/Creatinine Ratio 15.3, Glucose 92, Calcium 9.1, Total Bilirubin 9.60 H, Direct Bilirubin 7.76 H, AST 2134 H, ALT 3019 H, Alkaline Phosphatase 183 H, Total Protein 6.7, Albumin 3.1 L, Globulin 3.6, Lipase 102 01/15/22 07:15: PT Pending, INR Pending, APTT Pending 01/15/22 07:15: WBC 4.7, RBC 3.63 L, Hgb 10.4 L, Hct 31.3 L, MCV 86.2, MCH 28.7, MCHC 33.2, RDW Std Deviation 49.0 H, RDW Coeff of Tesfaye 15.8 H, Plt Count 153, MPV 10.2, Immature Gran % (Auto) 1.100 H, Neut % (Auto) 46.4 L, Lymph % (Auto) 37.2, [place] % (Auto) 11.4 H, Eos % (Auto) 3.0, Baso % (Auto) 0.9, Absolute Neuts (auto) 2.2, Absolute Lymphs (auto) 1.73, Nucleated RBC % 0 Medications at Discharge Home Medications benztropine 2 mg tablet 0.5 mg PO BID mood 02/19/15 bupropion HCl 150 mg tablet,12 hr sustained-release 150 mg PO DAILY mood 02/19/15 escitalopram oxalate 20 mg tablet 20 mg PO DAILY mood 02/19/15 risperidone 2 mg tablet 2 mg PO BID anxiety 11/17/17 hydroxyzine HCl 50 mg tablet 50 mg PO TID PRN Anxiety 02/11/18 Lamictal 100 mg PO/SL QHS mood 01/09/22 ibuprofen 400 mg tablet 600 mg PO Q8H PRN Pain 01/09/22 melatonin 10 mg PO/SL QHS PRN Sleep 01/09/22 Hospital Course Summary of Care Provided Hospital Course: The patient was accepted in [facility]. Bed became available in the evening and patient went to [facility]. My physical findings, assessment, plan and labs are well described in assessment and plan heading. Physical Exam Narrative The patient was seen and examined on the day of discharge. Day of admission was same as day of admission. Weight / BMI Weight Weight: 190 lb Body Mass Index (BMI) 30.7 ABG / Lab / Microbiology Data Result Diagrams: 01/15/22 07:15 01/15/22 07:15 Laboratory: Laboratory Results - last 24 hr 01/15/22 07:15: GGT 144 H Microbiology: Microbiology 01/14/22 18:15 Nasal Secretion SARS-CoV-2 Antigen (Rapid) - Final Meaningful Use Info Meaningful Use Diagnoses (Choose all that apply): None applicable Discharge Plan Admission Admit Date/Time: 01/15/22 07:18 Attending Provider: Ziyad Sousa Primary Care Provider: Care Physician,Mervat Primary Discharge Orders/Prescriptions Prescriptions: No Action bupropion HCl 150 MG tablet sustained-release 12 hr 150 mg PO DAILY benztropine 2 MG tablet 0.5 mg PO BID escitalopram oxalate 20 MG tablet 20 mg PO DAILY risperidone 2 MG tablet 2 mg PO BID hydroxyzine HCl 50 MG tablet 50 mg PO TID PRN (Reason: Anxiety) ibuprofen 400 mg Tablet 600 mg PO Q8H PRN (Reason: Pain) Lamictal 100 mg PO/SL QHS melatonin 10 mg PO/SL QHS PRN (Reason: Sleep) Referrals / Follow Up: Care Physician,No Primary [Primary Care Provider] - Disposition Disposition (needs filled in before D/C Order can be placed): Acute Care Hospital Charges/Coding Visit Charges OBSV E&M: 13069 Observation care discharge
== END 2022-01-15 17:10 | disposition short-term general hospital (02) | DRG 441 ==
LOC: ED 01-15 07:10 → MS3 01-15 07:22
PROVIDERS: Emergency Medicine; Admitting Provider Internal Medicine; Emergency Provider Student in an Organized Health Care Education/Training Program; Visit Provider Internal Medicine
DX: B16.9 Acute hepatitis B without delta-agent and without hepatic coma (principal); K72.00 Acute and subacute hepatic failure without coma; K81.0 Acute cholecystitis; F25.9 Schizoaffective disorder, unspecified; F31.9 Bipolar disorder, unspecified; F12.99 Cannabis use, unspecified with unspecified cannabis-induced disorder; F15.99 Other stimulant use, unspecified with unspecified stimulant-induced disorder; E88.09 Other disorders of plasma-protein metabolism, not elsewhere classified; F41.9 Anxiety disorder, unspecified; F17.210 Nicotine dependence, cigarettes, uncomplicated; Z79.899 Other long term (current) drug therapy; Z80.0 Family history of malignant neoplasm of digestive organs
CPT/HCPCS: 80048; 80076; 82977; 83690; 83735; 85025; 85610; 85730; 87811; 99251; 99285; 99406; J7030; A4216; G0463; J2405